=== PATIENT | male | born 1930 | race Caucasian/White ===

== ENCOUNTER 2017-05-12 15:07 | Outpatient (CLI) | payer MEDICARE, OTHER ==
[2017-05-12 18:21] LABS: CALCIUM 9.1 mg/dL (8.5-10.3); CREATININE 1.1 mg/dL (0.6-1.2); POTASSIUM 4.3 mmol/L (3.5-5.0)
[2017-05-12 18:23] LABS: HEMOGLOBIN A1C 0.8 g/dL
== END 2017-05-12 15:08 | disposition home or self-care (01) ==
LOC: LAB.F 15:07
PROVIDERS: ATTEND Internal Medicine
DX: E11.9 Type 2 diabetes mellitus without complications (principal)
CPT/HCPCS: 36415; 80048; 83036

== ENCOUNTER 2017-06-16 11:14 | Emergency (ER) | payer MEDICARE, OTHER ==
[2017-06-16 13:10] LABS: BILIRUBIN,URINE NEGATIVE (NEGATIVE); PH,URINE 5.5 PH (5.0-7.5)
[2017-06-16 13:11] LABS: BASOPHILS % (AUTO) 0.6 %; EOSINOPHILS # (AUTO) 0.2 10^3/uL (0.0-0.7); EOSINOPHILS % (AUTO) 2.4 %; HCT - HEMATOCRIT 47.7 % (42.0-52.0); HGB - HEMOGLOBIN 15.9 g/dL (14.0-18.0); LYMPHOCYTES # (AUTO) 1.7 10^3/uL (1.5-3.5); LYMPHOCYTES % (AUTO) 21.9 %; MEAN CORPUSCULAR HEMOGLOBIN 28.8 pg (27.0-31.0); MEAN CORPUSCULAR HGB CONC 33.4 g/dL (32.0-36.0); MEAN CORPUSCULAR VOLUME 86.1 fL (80.0-94.0); MEAN PLATELET VOLUME 9.4 fL (7.4-11.4); MONOCYTES # (AUTO) 0.5 10^3/uL (0.0-1.0); MONOCYTES % (AUTO) 6.8 %; NEUTROPHILS # (AUTO) 5.3 10^3/uL (1.5-6.6); NEUTROPHILS % (AUTO) 68.3 %; NUCLEATED RED BLOOD CELLS AUTO 0.1 /100WBC; RED BLOOD COUNT 5.54 10^6/uL (4.70-6.10); RED CELL DISTRIBUTION WIDTH 15.2 % (12.0-15.0); UNCORRECTED WHITE BLOOD COUNT 7.7 x10^3/uL; WHITE BLOOD COUNT 7.7 x10^3/uL (4.8-10.8)
[2017-06-16 13:11] LABS: UA CHARGE (STRIP ONLY) YES; UR CULTURE IF IND NOT INDICATED
[2017-06-16 13:22] LABS: ALBUMIN/GLOBULIN RATIO 1.4 (1.0-2.2); BILIRUBIN,TOTAL 0.7 mg/dL (0.2-1.0); CALCIUM 9.4 mg/dL (8.5-10.3); CREATININE 1.1 mg/dL (0.6-1.2); POTASSIUM 4.1 mmol/L (3.5-5.0); TOTAL PROTEIN 7.7 g/dL (6.7-8.2)
[2017-06-16 13:50] VITALS: BP 145/59
--- NOTE | 2017-06-16 15:04 | ED Physician Documentation ---
History of Present Illness - Stated complaint Stated Complaint: TIA SYMPTOMS - Chief complaint Chief Complaint: Neuro - History obtained from History obtained from: Patient, Caregiver - Additonal information Additional information: The patient is an 87-year-old male who is accompanied by his caregiver who helps provide history. The patient states, "I see everything and slants." He is an insulin-dependent diabetic who has been found by his caregivers to have intermittent episodes of confusion, with low blood sugars, as low as 35 yesterday. Because of his episodes of confusion his caregivers are concerned about the possibility of TIAs or possibly stroke. There has been no recent change in his weight, his diet, or his level of exercise. His insulin dose has been recently adjusted within the last month. He had been taking Lantus 30 units twice daily, and it was changed to 60 units in the morning. He also takes NovoLog 70/30 35 units 3 times per day. In addition to insulin-dependent diabetes the patient has peripheral neuropathy , with bilateral foot drop for which he wears ankle braces. He lives by himself , but has caregivers who live nearby and check in with him daily. Review of Systems Constitutional: denies: Fever Eyes: denies: Decreased vision Ears: denies: Tinnitus/ringing Nose: denies: Congestion Throat: denies: Sore throat Cardiac: denies: Chest pain / pressure Respiratory: denies: Dyspnea, Cough GI: denies: Abdominal Pain, Nausea, Vomiting : denies: Dysuria Skin: denies: Rash Musculoskeletal: denies: Back pain, Extremity swelling Neurologic: reports: Confused (Occasional episodes of confusion, associated with low blood sugar.). denies: Focal weakness, Headache PD PAST MEDICAL HISTORY - Past Medical History Cardiovascular: Hypertension Neuro: Peripheral neuropathy Endocrine/Autoimmune: Type 2 diabetes GI: Ulcers : Benign prostate hypertrophy Musculoskeletal: Osteoarthritis - Past Surgical History General: Cholecystectomy, Appendectomy Ortho: Carpal Tunnel surgery - Present Medications Home Medications: Ambulatory Orders Medication Instructions Recorded Confirmed Insulin NPH Hum/Reg Insulin Hm 58 unit SUBQ TID 05/26/14 06/16/17 [Novolin 70-30 100 Unit/ml Vial] metFORMIN [Glucophage] 500 mg PO BIDWM 03/04/16 06/16/17 - Allergies Allergies/Adverse Reactions: Allergies Allergy/AdvReac Type Severity Reaction Status Date / Time No Known Drug Allergies Allergy Verified 07/15/16 16:32 - Living Situation Living Arrangement: reports: At home - Social History Does the pt smoke?: No Smoking Status: Former smoker Does the pt have substance abuse?: No PD ED PE NORMAL - Vitals Vital signs reviewed: Yes (systolic hypertension initially.) - General General: Alert and oriented X 3, Well developed/nourished, Other (Pleasant elderly male.) - HEENT HEENT: Atraumatic, PERRL, EOMI, Pharynx benign, Other (No visual field deficit detected.) - Neck Neck: Supple, no meningeal sign, No adenopathy, No JVD - Cardiac Cardiac: RRR, No murmur - Respiratory Respiratory: No respiratory distress, Clear bilaterally - Abdomen Abdomen: Soft, Non tender - Back Back: No CVA TTP - Derm Derm: No rash - Extremities Extremities: No edema, No calf tenderness / cord - Neuro Neuro: Alert and oriented X 3, No motor deficit, No sensory deficit Results - Vitals Vitals: Oxygen O2 Source Room air - Labs Labs: Laboratory Tests 06/16/17 06/16/17 06/16/17 12:43 12:55 13:01 WBC 7.7 RBC 5.54 Hgb 15.9 Hct 47.7 MCV 86.1 MCH 28.8 MCHC 33.4 RDW 15.2 H Plt Count 150 MPV 9.4 Neut # 5.3 Lymph # 1.7 [place] # 0.5 Eos # 0.2 Baso # 0.0 Absolute Nucleated RBC 0.01 Nucleated RBCs 0.1 Sodium Potassium Chloride Carbon Dioxide Anion Gap BUN Creatinine Estimated GFR (MDRD) Glucose POC Whole Bld Glucose 101 H Calcium Total Bilirubin AST ALT Alkaline Phosphatase Total Protein Albumin Globulin Albumin/Globulin Ratio Lipase Urine Color YELLOW Urine Clarity CLEAR Urine pH 5.5 Ur Specific [place] 1.025 Urine Protein NEGATIVE Urine Glucose (UA) NEGATIVE Urine Ketones NEGATIVE Urine Occult Blood NEGATIVE Urine Nitrite NEGATIVE Urine Bilirubin NEGATIVE Urine Urobilinogen 0.2 (NORMAL) Ur Leukocyte Esterase NEGATIVE Ur Microscopic Review NOT INDICATED Urine Culture Comments NOT INDICATED 06/16/17 06/16/17 13:01 14:11 WBC RBC Hgb Hct MCV MCH MCHC RDW Plt Count MPV Neut # Lymph # [place] # Eos # Baso # Absolute Nucleated RBC Nucleated RBCs Sodium 141 Potassium 4.1 Chloride 104 Carbon Dioxide 28 Anion Gap 9.0 BUN 24 H Creatinine 1.1 Estimated GFR (MDRD) 63 L Glucose 78 POC Whole Bld Glucose 64 L Calcium 9.4 Total Bilirubin 0.7 AST 29 ALT 22 Alkaline Phosphatase 80 Total Protein 7.7 Albumin 4.5 Globulin 3.2 Albumin/Globulin Ratio 1.4 Lipase 40 Urine Color Urine Clarity Urine pH Ur Specific [place] Urine Protein Urine Glucose (UA) Urine Ketones Urine Occult Blood Urine Nitrite Urine Bilirubin Urine Urobilinogen Ur Leukocyte Esterase Ur Microscopic Review Urine Culture Comments PD MEDICAL DECISION MAKING - ED course Complexity details: reviewed results, re-evaluated patient, considered differential, d/w patient, d/w family, d/w PMD ED course: The patient's presentation is most consistent with episodes of hypoglycemia, with associated confusion. His clinical presentation does not suggest TIA or stroke. I discussed with him and his caregiver the likelihood that his episodes of confusion are related to low blood sugar rather than intracranial ischemia, and they agree that imaging study would not likely be of clinical benefit. While in the emergency department the patient's blood sugar, although initially 101, came down to 64. He was given a sandwich and juice at that time , and responded well. I discussed his insulin dosing with Dr. White, his primary physician, and he advised decreasing the 70/30 insulin to twice daily dosing rather than 3 times daily. I discussed this with the patient and his caregiver who will institute the new dosing. I discussed with them outpatient follow-up, as well as potentially worrisome signs or symptoms that should the emergency department. Departure - Departure Disposition: 01 Home, Self Care Clinical Impression: Hypoglycemia due to insulin Condition: Stable Instructions: ED Diabetes Hypoglycemia Insulin React Follow-Up: Nikolas White MD [Primary Care Provider] - Comments: Decrease your 7030 insulin from 3 times a day down to twice per day. Continue the Lantus as previously prescribed. Schedule follow-up appointment with your primary physician. Return to the emergency department if you develop recurrent episodes of confusion or neurologic deficit, or otherwise worsening symptoms. Discharge Date/Time: 06/16/17 15:09
== END 2017-06-16 15:09 | disposition home or self-care (01) ==
LOC: ED 11:14
DX: E11.649 Type 2 diabetes mellitus with hypoglycemia without coma (principal); T38.3X5A Adverse effect of insulin and oral hypoglycemic [antidiabetic] drugs, initial encounter; E11.42 Type 2 diabetes mellitus with diabetic polyneuropathy; M21.372 Foot drop, left foot; M21.371 Foot drop, right foot; I10 Essential (primary) hypertension; Z79.4 Long term (current) use of insulin; Z87.891 Personal history of nicotine dependence
CPT/HCPCS: 36415; 80053; 81001; 81003; 83690; 85025; 87086; 99283; 99284

== ENCOUNTER 2017-07-02 16:36 | Outpatient (CLI) | payer MEDICARE, OTHER | END 2017-07-02 16:37 | disposition EMS.NT | LOC: EMS 16:36 | PROVIDERS: ATTEND Surgery | DX: Z03.89 Encounter for observation for other suspected diseases and conditions ruled out (principal) ==

== ENCOUNTER 2017-08-12 12:39 | Outpatient (CLI) | payer MEDICARE, OTHER ==
[2017-08-12 18:48] LABS: HEMOGLOBIN A1C 0.76 g/dL
[2017-08-12 18:56] LABS: BUN - BLOOD UREA NITROGEN 25 mg/dL (6-20); CARBON DIOXIDE - CO2 24 mmol/L (21-32); CHLORIDE 108 mmol/L (101-111); CHOL/HDL RATIO 4.5 (<5.0); CHOLESTEROL 176 mg/dL; CREATININE 1.1 mg/dL (0.6-1.2); GFR - MDRD 63 (>89); GLUCOSE 90 mg/dL (70-100); HDL CHOLESTEROL 39 mg/dL; LDL/HDL RATIO 2.7 (<3.6); POTASSIUM 4.6 mmol/L (3.5-5.0); SODIUM 139 mmol/L (135-145); TRIGLYCERIDES 160 mg/dL; VLDL CHOLESTEROL 32 mg/dL
== END 2017-08-12 12:40 | disposition home or self-care (01) ==
LOC: LAB.F 12:39
PROVIDERS: ATTEND Internal Medicine
DX: E11.9 Type 2 diabetes mellitus without complications (principal)
CPT/HCPCS: 36415; 80048; 80061; 83036

== ENCOUNTER 2017-11-13 14:05 | Emergency (ER) | payer MEDICARE, OTHER ==
--- NOTE | 2017-11-13 16:04 | ED Physician Documentation ---
PD HPI LOWER EXT INJURY - Stated complaint Stated Complaint: R LEG PX - Chief complaint Chief Complaint: Ext Problem - History obtained from History obtained from: Patient - History of Present Illness PD HPI LOW EXT INJURY LOCATION: Right, Knee Type of injury: No: Fall, Twist Where injury occurred: Home Timing - onset: How many days ago (he has had about a week of right knee pain with walking and stepping (such as stairs). Some dusky color of leg, but this is common. Mild edema of both legs.) Timing - details: Abrupt onset (noted pain with stepping and walking without apparent injury.), Still present, Intermittant Improved by: Rest Worsened by: Other (walking and stepping on steps.). No: Moving, Palpating Associated symptoms: No: Weakness, Numbness, Swelling (not in knee, but some of lower leg/ankle.) Contributing factors: Prior ortho surgery (right hip replacement last spring.) Similar symptoms before: Diagnosis (has had some pain with walking in the past due to vascular insufficiency. Also concerned about DVTs.) Review of Systems Constitutional: denies: Fever, Chills Throat: denies: Sore throat Cardiac: denies: Chest pain / pressure, Palpitations Respiratory: denies: Dyspnea, Cough Skin: reports: Abrasion (s) (has some abrasions of legs, right knee from his cat. No signs of infection.). denies: Rash Musculoskeletal: denies: Neck pain, Back pain PD PAST MEDICAL HISTORY - Past Medical History Cardiovascular: Hypertension, Peripheral Vascular Disease (with ?fem/pop bypass of both legs in the past. ) Neuro: Peripheral neuropathy Endocrine/Autoimmune: Type 2 diabetes GI: Ulcers : Benign prostate hypertrophy Musculoskeletal: Osteoarthritis - Past Surgical History General: Cholecystectomy, Appendectomy Ortho: Carpal Tunnel surgery - Present Medications Home Medications: Ambulatory Orders Medication Instructions Recorded Confirmed Insulin NPH Hum/Reg Insulin Hm 58 unit SUBQ TID 05/26/14 11/13/17 [Novolin 70-30 100 Unit/ml Vial] metFORMIN [Glucophage] 500 mg PO BIDWM 03/04/16 11/13/17 Insulin Glargine [Lantus Solostar] 50 units SQ DAILY 11/13/17 11/13/17 Naproxen 375 mg PO BID #15 tablet 11/13/17 Tramadol HCl 50 mg PO Q6H PRN #20 tablet 11/13/17 - Allergies Allergies/Adverse Reactions: Allergies Allergy/AdvReac Type Severity Reaction Status Date / Time No Known Drug Allergies Allergy Verified 11/13/17 14:11 - Social History Does the pt smoke?: No Smoking Status: Never smoker Does the pt drink ETOH?: No Does the pt have substance abuse?: No - Immunizations Immunizations are current?: Yes PD ED PE NORMAL - Vitals Vital signs reviewed: Yes - General General: Alert and oriented X 3, No acute distress, Well developed/nourished - Neck Neck: Supple, no meningeal sign, No adenopathy - Cardiac Cardiac: RRR, No murmur - Respiratory Respiratory: Clear bilaterally - Derm Derm: Warm and dry, Other (abrasions of skin around both knees. No signs of infection. ). No: Normal color (some dusky color of skin in both lower legs from knees down. DP pulses weak but palpable both sides. Will get U/S. ) - Extremities Extremities: No calf tenderness / cord, Other (some edema in both legs anteriorly and around ankles. No calf tenderness per se. ) - Neuro Neuro: Alert and oriented X 3, No motor deficit, No sensory deficit, Normal speech Results - Vitals Vitals: Vital Signs - 24 hr 11/13/17 11/13/17 11/13/17 14:07 18:27 22:58 Temperature 36.7 C 36.2 C L 36.4 C L Heart Rate 71 76 84 Respiratory 18 20 20 Rate Blood Pressure 152/80 H 109/77 121/76 O2 Saturation 96 98 100 Oxygen O2 Source Room air - Labs Labs: Laboratory Tests 11/13/17 11/13/17 11/13/17 17:01 17:22 17:22 WBC 6.1 RBC 5.36 Hgb 15.3 Hct 47.7 MCV 89.0 MCH 28.6 MCHC 32.2 RDW 15.9 H Plt Count 166 MPV 9.5 Neut # 3.8 Lymph # 1.4 L [place] # 0.5 Eos # 0.2 Baso # 0.1 Absolute Nucleated RBC 0.00 Nucleated RBC % 0.1 ESR Sodium 138 Potassium 4.7 Chloride 103 Carbon Dioxide 23 Anion Gap 12.0 BUN 25 H Creatinine 1.3 H Estimated GFR (MDRD) 52 L Glucose 195 H POC Whole Bld Glucose 204 H Calcium 9.6 Magnesium 2.1 Total Bilirubin 0.8 AST 34 ALT 38 Alkaline Phosphatase 81 B-Natriuretic Peptide Total Protein 7.3 Albumin 4.1 Globulin 3.2 Albumin/Globulin Ratio 1.3 Lipase 44 11/13/17 11/13/17 17:22 17:22 WBC RBC Hgb Hct MCV MCH MCHC RDW Plt Count MPV Neut # Lymph # [place] # Eos # Baso # Absolute Nucleated RBC Nucleated RBC % ESR 1 Sodium Potassium Chloride Carbon Dioxide Anion Gap BUN Creatinine Estimated GFR (MDRD) Glucose POC Whole Bld Glucose Calcium Magnesium Total Bilirubin AST ALT Alkaline Phosphatase B-Natriuretic Peptide 1089 H Total Protein Albumin Globulin Albumin/Globulin Ratio Lipase - Rads (name of study) knee xray Radiology: Prelim report reviewed, EMP read contemporaneously (arthritic changes , no acute fractures. ) duplex venous Radiology: Prelim report reviewed (no DVT) duplex arterial Radiology: Prelim report reviewed (occlusion in femoral artery, with reconstituted flow distally, going through bypass graft. ) PD MEDICAL DECISION MAKING - ED course Complexity details: reviewed results, re-evaluated patient, considered differential, d/w patient Departure - Departure Disposition: 01 Home, Self Care Clinical Impression: Arthritis of knee, right Knee pain, right Qualifiers: Chronicity: acute Qualified Code(s): M25.561 - Pain in right knee Condition: Stable Record reviewed to determine appropriate education?: Yes Instructions: ED Meniscal Injury Knee Poss, ED Knee Pain [facility]O Follow-Up: [facility] [Provider Group] Prescriptions: Naproxen 375 mg PO BID #15 tablet Tramadol HCl 50 mg PO Q6H PRN #20 tablet PRN Reason: Pain Comments: There is not any signs of DVT (venous clots) and the arterial flow is adequate through the prior graft. There is arthritis of the knee and I think the arthritis or the cartilage in the knee is what is paining you. Use some anti- inflammatory short term, such as Naproxen twice daily for a week with food. Tylenol 3-4 times daily for the pain and add Tramadol as needed for worse pain. Follow up with PMD or Ortho if not improved over the next week.
[2017-11-13] MEDS ORDERED: ACETAMINOPHEN 325 MG TABLET PO STA (16:36)
--- NOTE | 2017-11-13 17:09 | XRAY Report ---
EXAM: RIGHT KNEE RADIOGRAPHY EXAM DATE: 11/13/2017 04:55 PM. CLINICAL HISTORY: Right knee pain with walking. COMPARISON: 03/03/2016. TECHNIQUE: 3 views. FINDINGS: Bones: Normal. No fractures or bone lesions. Joints: Minimal spurring. No effusion. No subluxations. Soft Tissues: Medial and lateral compartment chondrocalcinosis. Atherosclerotic arterial calcificatio n. Scattered surgical clips. IMPRESSION: No acute findings. Stable mild osteoarthritis and chondrocalcinosis. [facility] Referring Provider Line: [phone] SITE ID: [id number]
[2017-11-13 17:31] LABS: BASOPHILS # (AUTO) 0.1 10^3/uL (0.0-0.1); BASOPHILS % (AUTO) 0.9 %; EOSINOPHILS # (AUTO) 0.2 10^3/uL (0.0-0.7); EOSINOPHILS % (AUTO) 3.6 %; HGB - HEMOGLOBIN 15.3 g/dL (14.0-18.0); LYMPHOCYTES # (AUTO) 1.4 10^3/uL (1.5-3.5); LYMPHOCYTES % (AUTO) 23.9 %; MEAN CORPUSCULAR HEMOGLOBIN 28.6 pg (27.0-31.0); MEAN CORPUSCULAR HGB CONC 32.2 g/dL (32.0-36.0); MEAN PLATELET VOLUME 9.5 fL (7.4-11.4); MONOCYTES # (AUTO) 0.5 10^3/uL (0.0-1.0); MONOCYTES % (AUTO) 8.2 %; NEUTROPHILS # (AUTO) 3.8 10^3/uL (1.5-6.6); NEUTROPHILS % (AUTO) 63.4 %; PLT - PLATELET COUNT 166 10^3/uL (130-450); RED BLOOD COUNT 5.36 10^6/uL (4.70-6.10); RED CELL DISTRIBUTION WIDTH 15.9 % (12.0-15.0); WHITE BLOOD COUNT 6.1 x10^3/uL (4.8-10.8)
[2017-11-13 17:42] LABS: ALBUMIN 4.1 g/dL (3.2-5.5); ALBUMIN/GLOBULIN RATIO 1.3 (1.0-2.2); BILIRUBIN,TOTAL 0.8 mg/dL (0.2-1.0); CALCIUM 9.6 mg/dL (8.5-10.3); CREATININE 1.3 mg/dL (0.6-1.2); MAGNESIUM 2.1 mg/dL (1.7-2.8); TOTAL PROTEIN 7.3 g/dL (6.7-8.2)
--- NOTE | 2017-11-13 21:47 | Ultrasound Report ---
EXAM: RIGHT LOWER EXTREMITY VENOUS ULTRASOUND EXAM DATE: 11/13/2017 09:23 PM. CLINICAL HISTORY: Pain in right lower leg with walking; some edema. COMPARISON: None. TECHNIQUE: Real-time sonographic vascular imaging was performed by the cardiac cath rn through the lower extremity utilizing both color-flow and Doppler spectral analysis. Multiple service representative static sheri ges were saved for review. FINDINGS: Common Femoral Vein (CFV): Normal. CFV-GSV Junction: Normal. Profunda Femoral Vein (PFV): Normal. Femoral Vein (FV) Prox: Normal. Femoral Vein (FV) Mid: Normal. Femoral Vein (FV) Dist: Normal. Popliteal Vein: Normal. Posterior Tibial Veins: Normal. Peroneal Veins: Normal. Contralateral Side CFV: Normal. Other: Right leg edema noted. Study limited due to body habitus. IMPRESSION: No evidence for deep venous thrombosis. Right leg edema noted. [facility] Referring Provider Line: [phone] SITE ID: [id number]
--- NOTE | 2017-11-13 21:47 | Ultrasound Preliminary Report ---
Exam: US DUPLEX EXT VEINS RIGHT IMPRESSION: No evidence for deep venous thrombosis. Right leg edema noted. [facility] SITE ID: [id number]
[2017-11-13 22:59] VITALS: BP 121/76
[2017-11-13] MEDS ORDERED: traMADol 50 MG TABLET PO STA (23:18)
--- NOTE | 2017-11-13 23:32 | Ultrasound Preliminary Report ---
Exam: US DUPLEX LWR EXT ARTERIAL RT IMPRESSION: 1. Occluded distal superficial femoral artery with patent femoral popliteal bypass graft. 2. Biphasic flow above the graft. Monophasic flow distal to the graft. 3. No focal significant stenosis identified. [facility] SITE ID: [id number]
--- NOTE | 2017-11-14 00:33 | Ultrasound Report ---
EXAM: RIGHT LOWER EXTREMITY ARTERIAL DOPPLER ULTRASOUND EXAM DATE: 11/13/2017 10:58 PM. CLINICAL HISTORY: Pain, right knee and lower leg, walking; prior bypass. COMPARISON: 02/09/2010. TECHNIQUE: Real-time sonographic vascular imaging was performed by the wind projects supervisor, utilizing color-f low, Doppler flow, and spectral analysis. Multiple artist representative static images were saved for review . FINDINGS: There is biphasic flow from the common femoral artery through the mid superficial femoral a rtery. Distal superficial femoral artery is occluded. There appears to be a femoral popliteal bypass graft which is patent. No focal significant stenosis is seen. Distal to the bypass there is monophasi c flow in the popliteal artery and runoff vessels. Duplex Results Right Lower Extremity: TURNING MACHINE OPERATOR: 77 cm/sec; biphasic. SFA Prox: 31 cm/sec; biphasic. SFA Mid: 21 cm/sec; biphasic. SFA Dist: Occluded. PFA 43 cm/sec; biphasic. POP: Monophasic. ISMAEL: Monophasic. CLINICAL RESEARCH ASSISTANT: Monophasic. PER: Monophasic. DPA: Monophasic. Prebypass Biphasic Waveform, PSV 82 cm/sec. Biphasic Waveform, PSV 116 cm/sec. Prox Biphasic Waveform, PSV 38 cm/sec. Mid Biphasic Waveform, PSV 41 cm/sec. Dist Biphasic Waveform, PSV 66 cm/sec. IMPRESSION: 1. Occluded distal superficial femoral artery with patent femoral popliteal bypass graft. 2. Biphasic flow above the graft. Monophasic flow distal to the graft. 3. No focal significant stenosis identified. [facility] Referring Provider Line: [phone] SITE ID: [id number]
== END 2017-11-13 23:25 | disposition home or self-care (01) ==
LOC: ED 14:05
DX: M13.861 Other specified arthritis, right knee (principal); I10 Essential (primary) hypertension; E11.51 Type 2 diabetes mellitus with diabetic peripheral angiopathy without gangrene; Z79.4 Long term (current) use of insulin; Z96.641 Presence of right artificial hip joint; Z95.828 Presence of other vascular implants and grafts
CPT/HCPCS: 36415; 73562; 80053; 83690; 83735; 83880; 85025; 85651; 93926; 93971; 99283; 99284; A9270

== ENCOUNTER 2017-11-20 13:39 | Inpatient (IN) | payer MEDICARE, OTHER ==
[2017-11-20 14:12] LABS: BILIRUBIN,URINE NEGATIVE (NEGATIVE); GLUCOSE, URINE (UA) NEGATIVE (NEGATIVE); KETONES,URINE (UA) NEGATIVE (NEGATIVE); LEUKOCYTE ESTERASE, URINE NEGATIVE (NEGATIVE); NITRITE,URINE NEGATIVE (NEGATIVE); OCCULT BLOOD,URINE TRACE-INTA (NEGATIVE); PH,URINE 5.5 PH (5.0-7.5); PROTEIN,URINE TRACE mg/dL (NEGATIVE); UROBILINOGEN,URINE 0.2 (NORMAL) E.U./dL (NORMAL)
[2017-11-20 14:16] LABS: CLARITY,URINE CLEAR (CLEAR)
--- NOTE | 2017-11-20 15:41 | ED Physician Documentation ---
PD HPI ALTERED MENTAL STATUS - Stated complaint Stated Complaint: CONFUSION - Chief complaint Chief Complaint: Neuro - History obtained from History obtained from: Patient, Friend (who lives on the property) - History of Present Illness Timing - onset: Other (87-year-old gentleman with history of diabetes who lives on his own with visiting caregivers on the weekdays and he has a person who lives on his property who checks on him and administers the insulin on the weekends. For the last 2 days he has been significantly more confused than normal, he said he wanted to go home even though this statement was made while in his living room. He forgot his cats name. He says he has a dog which he does not. He has no specific complaints, denies headache, chest pain, shortness of breath, abdominal pain, changes in bowel movements, fevers.) Review of Systems Unable to obtain: Confused PD PAST MEDICAL HISTORY - Past Medical History Past Medical History: Yes Cardiovascular: Hypertension, Peripheral Vascular Disease Neuro: Peripheral neuropathy Endocrine/Autoimmune: Type 2 diabetes GI: Ulcers : Benign prostate hypertrophy Musculoskeletal: Osteoarthritis - Past Surgical History General: Cholecystectomy, Appendectomy Ortho: Carpal Tunnel surgery - Present Medications Home Medications: Ambulatory Orders Medication Instructions Recorded Confirmed Insulin NPH Hum/Reg Insulin Hm 58 unit SUBQ TID 05/26/14 11/20/17 [Novolin 70-30 100 Unit/ml Vial] metFORMIN [Glucophage] 500 mg PO BIDWM 03/04/16 11/20/17 Insulin Glargine [Lantus Solostar] 50 units SQ DAILY 11/13/17 11/20/17 Naproxen 375 mg PO BID #15 tablet 11/13/17 11/20/17 Tramadol HCl 50 mg PO Q6H PRN #20 tablet 11/13/17 11/20/17 - Allergies Allergies/Adverse Reactions: Allergies Allergy/AdvReac Type Severity Reaction Status Date / Time No Known Drug Allergies Allergy Verified 11/20/17 13:50 - Social History Does the pt smoke?: No Smoking Status: Never smoker Does the pt drink ETOH?: No Does the pt have substance abuse?: No - Family History Family history: reports: Non contributory - Immunizations Immunizations are current?: Yes PD ED PE NORMAL - Vitals Vital signs reviewed: Yes - General General: Other (He is alert and cooperative, oriented to place only not why he is here or the date. He says it is August 18, 2001 and he does not know the president despite being "a huge trump supporter" by his friend.) - HEENT HEENT: PERRL, EOMI - Neck Neck: Supple, no meningeal sign, No bony TTP - Cardiac Cardiac: RRR, No murmur - Respiratory Respiratory: No respiratory distress, Clear bilaterally - Abdomen Abdomen: Soft, Non tender - Back Back: No CVA TTP, No spinal TTP - Derm Derm: Normal color, Warm and dry - Extremities Extremities: No edema, No calf tenderness / cord - Neuro Neuro: informatics application analyst 2-12 intact Eye Opening: Spontaneous Motor: Obeys Commands Verbal: Confused GCS Score: 14 - Psych Psych: Normal mood, Normal affect Results - Vitals Vitals: Vital Signs - 24 hr 11/20/17 13:44 Temperature 36.1 C L Heart Rate 89 Respiratory 18 Rate Blood Pressure 162/75 H O2 Saturation 98 Oxygen O2 Source Room air - EKG (time done) 1614 Rate: Rate (enter#) (72) Rhythm: NSR [place]: Normal QRS: Low voltage Ischemia: Non specific changes Computer interpretation: Agree with computer - Labs Labs: Laboratory Tests 11/20/17 11/20/17 11/20/17 13:49 14:00 15:47 WBC 6.2 RBC 5.41 Hgb 15.0 Hct 47.4 MCV 87.5 MCH 27.8 MCHC 31.8 L RDW 15.6 H Plt Count 150 MPV 10.1 Neut # 3.9 Lymph # 1.4 L [place] # 0.6 Eos # 0.2 Baso # 0.1 Absolute Nucleated RBC 0.00 Nucleated RBC % 0.1 Sodium Potassium Chloride Carbon Dioxide Anion Gap BUN Creatinine Estimated GFR (MDRD) Glucose POC Whole Bld Glucose 152 H Calcium Total Bilirubin AST ALT Alkaline Phosphatase Troponin I Total Protein Albumin Globulin Albumin/Globulin Ratio Lipase Urine Color YELLOW Urine Clarity CLEAR Urine pH 5.5 Ur Specific [place] >=1.030 H Urine Protein TRACE Urine Glucose (UA) NEGATIVE Urine Ketones NEGATIVE Urine Occult Blood TRACE-INTA Urine Nitrite NEGATIVE Urine Bilirubin NEGATIVE Urine Urobilinogen 0.2 (NORMAL) Ur Leukocyte Esterase NEGATIVE Ur Microscopic Review NOT INDICATED Urine Culture Comments NOT INDICATED 11/20/17 11/20/17 15:47 15:47 WBC RBC Hgb Hct MCV MCH MCHC RDW Plt Count MPV Neut # Lymph # [place] # Eos # Baso # Absolute Nucleated RBC Nucleated RBC % Sodium 139 Potassium 4.5 Chloride 107 Carbon Dioxide 23 Anion Gap 9.0 BUN 23 H Creatinine 1.3 H Estimated GFR (MDRD) 52 L Glucose 119 H POC Whole Bld Glucose Calcium 8.9 Total Bilirubin 0.8 AST 33 ALT 32 Alkaline Phosphatase 73 Troponin I 0.18 Total Protein 6.8 Albumin 4.0 Globulin 2.8 Albumin/Globulin Ratio 1.4 Lipase 33 Urine Color Urine Clarity Urine pH Ur Specific [place] Urine Protein Urine Glucose (UA) Urine Ketones Urine Occult Blood Urine Nitrite Urine Bilirubin Urine Urobilinogen Ur Leukocyte Esterase Ur Microscopic Review Urine Culture Comments - Rads (name of study) CT Head Radiology: EMP read contemporaneously (Atrophy) 2v chest Radiology: EMP read contemporaneously (New small right pleural effusion without other acute disease.) PD MEDICAL DECISION MAKING - ED course ED course: 87-year-old gentleman who presents without chest pain or trouble breathing has been confused for a couple of days. His exam is nonfocal and his EKG is nonspecific. He does have mild troponin anemia, remainder of his workup here is negative. Call to Dr. Polanco for observation at 4:19 PM. Departure - Departure Disposition: ED Place in Observation Clinical Impression: Troponin I above reference range Altered mental status Qualifiers: Altered mental status type: disorientation Qualified Code(s): R41.0 - Disorientation, unspecified Condition: Stable
[2017-11-20 15:56] LABS: BASOPHILS # (AUTO) 0.1 10^3/uL (0.0-0.1); BASOPHILS % (AUTO) 1.2 %; EOSINOPHILS # (AUTO) 0.2 10^3/uL (0.0-0.7); EOSINOPHILS % (AUTO) 3.5 %; LYMPHOCYTES # (AUTO) 1.4 10^3/uL (1.5-3.5); LYMPHOCYTES % (AUTO) 22.3 %; MEAN CORPUSCULAR HEMOGLOBIN 27.8 pg (27.0-31.0); MEAN CORPUSCULAR HGB CONC 31.8 g/dL (32.0-36.0); MEAN CORPUSCULAR VOLUME 87.5 fL (80.0-94.0); MEAN PLATELET VOLUME 10.1 fL (7.4-11.4); MONOCYTES # (AUTO) 0.6 10^3/uL (0.0-1.0); NEUTROPHILS # (AUTO) 3.9 10^3/uL (1.5-6.6); PLT - PLATELET COUNT 150 10^3/uL (130-450); RED BLOOD COUNT 5.41 10^6/uL (4.70-6.10); RED CELL DISTRIBUTION WIDTH 15.6 % (12.0-15.0); WHITE BLOOD COUNT 6.2 x10^3/uL (4.8-10.8)
--- NOTE | 2017-11-20 16:05 | CT Report ---
EXAM: CT HEAD EXAM DATE: 11/20/2017 03:57 PM. CLINICAL HISTORY: Altered mental status. COMPARISON: None. TECHNIQUE: Multiaxial CT images were obtained from the foramen magnum to the vertex. Reformats: Coron al. IV contrast: None. In accordance with CT protocol optimization, one or more of the following dose reduction techniques w ere utilized for this exam: automated exposure control, adjustment of mA and/or KV based on patient s ize, or use of iterative reconstructive technique. FINDINGS: Parenchyma: No intraparenchymal hemorrhage. No evidence of mass, midline shift, or CT findings of acu te infarction. Manzo-white differentiation is distinct. Diffuse chronic microangiopathic white matter changes. Extraaxial Spaces: Normal for age. No subdural or epidural collections. Ventricles: The ventricles and cortical sulci are enlarged, consistent with age-related tissue loss. Sinuses and orbits: Imaged paranasal sinuses, orbits, and mastoids show no significant abnormality. Bones: Unremarkable. Other: Calcifications of intracranial carotid and vertebral arteries. IMPRESSION: Generalized age-related cortical atrophic changes without evidence of acute intracranial abnormality. [facility] Referring Provider Line: [phone] SITE ID: [id number]
[2017-11-20 16:06] LABS: ALBUMIN/GLOBULIN RATIO 1.4 (1.0-2.2); BILIRUBIN,TOTAL 0.8 mg/dL (0.2-1.0); CALCIUM 8.9 mg/dL (8.5-10.3); CREATININE 1.3 mg/dL (0.6-1.2); TOTAL PROTEIN 6.8 g/dL (6.7-8.2)
[2017-11-20] MEDS ORDERED: ASPIRIN CHEW 81 MG TABLET PO STA (16:18)
[2017-11-20] MEDS ORDERED: METOPROLOL TARTRATE 50 MG TABLET PO STA (16:18)
[2017-11-20] MEDS ORDERED: traMADol 50 MG TABLET PO PRN (16:22)
[2017-11-20] MEDS ORDERED: SODIUM CHLORIDE FLUSH 0.9% 10 ML SYRINGE IVP PRN (16:24)
[2017-11-20] MEDS ORDERED: ACETAMINOPHEN 325 MG TABLET PO PRN (16:24)
[2017-11-20] MEDS ORDERED: oxyCODONE 5 MG TABLET PO PRN (16:24)
[2017-11-20] MEDS ORDERED: LABETALOL 20 MG/4 ML SYRINGE IVP PRN (16:24)
[2017-11-20] MEDS ORDERED: PROCHLORPERAZINE 10 MG/2 ML VIAL IVP PRN (16:24)
[2017-11-20] MEDS ORDERED: ONDANSETRON 4 MG/2 ML VIAL IVP PRN (16:24)
--- NOTE | 2017-11-20 16:24 | XRAY Report ---
EXAM: CHEST RADIOGRAPHY EXAM DATE: 11/20/2017 04:05 PM. CLINICAL HISTORY: Altered mental status. COMPARISON: 07/15/2016. TECHNIQUE: 2 views. FINDINGS: Lungs/Pleura: There is new mild blunting of the right costophrenic angle. Left lung appears unchanged . Mid and upper lung zones are clear. No pneumothorax. Mediastinum: There is mild cardiomegaly. Trachea is midline. Other: None. IMPRESSION: 1. New small right pleural effusion. 2. Otherwise unchanged. [facility] Referring Provider Line: [phone] SITE ID: [id number]
[2017-11-20] MEDS ORDERED: IOPAMIDOL-300 100 ML VIAL ONE (16:46)
[2017-11-20 16:51] LABS: SALICYLATE < 6.0 mg/dL
[2017-11-20 16:53] LABS: ACETAMINOPHEN < 10 ug/mL (10-30)
[2017-11-20 17:09] LABS: THYROID STIMULATING HORMONE 4.33 uIU/mL (0.34-5.60)
[2017-11-20] MEDS: INSULIN ASPART 300 UNIT/3 ML PEN SUBQ SCH ×2 (17:52→21:00)
[2017-11-20] MEDS ORDERED: IOPAMIDOL-300 100 ML VIAL IVP ONE (18:21)
--- NOTE | 2017-11-20 19:24 | CT Preliminary Report ---
Exam: CT NECK ANGIO IMPRESSION: 1. 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 2. The cervical vertebral arteries appear patent but evaluation is limited and is considered incomple te in the low neck. 3. Potentially flow-limiting focal stenosis with prominent calcified plaque at the right subclavian a rtery origin. 4. Arterial evaluation in the neck is somewhat limited secondary to relatively dilute intra-arterial contrast. 5. Pleural effusions right larger than left. 6. 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 7. Ultrasound could be used to more accurately define a suspected 1.5 cm right thyroid nodule. [facility] SITE ID: [id number]
--- NOTE | 2017-11-20 19:31 | CT Report ---
EXAM: CT ANGIOGRAM NECK EXAM DATE: 11/20/2017 06:20 PM. CLINICAL HISTORY: Confusion and memory loss. COMPARISON: None. TECHNIQUE: Routine axial helical imaging was performed from the skull base through the aortic arch. I V Contrast: 80 mL Isovue 300. Reconstructions: Routine multiplanar 3D MIP reconstructions. Evaluation of arterial stenosis is based on a NASCET method of measurement. In accordance with CT protocol optimization, one or more of the following dose reduction techniques w ere utilized for this exam: automated exposure control, adjustment of mA and/or KV based on patient s ize, or use of iterative reconstructive technique. FINDINGS: Densely contrast opacified pulmonary arteries in the chest but arterial contrast opacification in the neck is quite dilute which significantly limits arterial evaluation. Small dependent pleural effusion on the left. Moderate dependent pleural effusion on the right. Chronic advanced multilevel degenerative cervical spinal spondylosis. Cervical levoscoliosis. There may be a 1.5 cm mildly expansile soft tissue density nodule of the right lobe of the thyroid gl and. Mild to moderate atherosclerotic calcification at the top of the aortic arch. No evidence for flow-li miting stenosis at the great vessel origins. Moderate to severe focal luminal stenosis with prominent atherosclerotic calcification at the right s ubclavian artery origin. Right cervical carotid artery atherosclerotic disease with calcified plaque, especially prominent in the region of the cervical bifurcation. Multifocal right cervical carotid artery luminal stenosis is present but unlikely to be hemodynamically significant. Multifocal atherosclerotic disease with calcified and noncalcified plaque of the left cervical caroti d artery, especially prominent at the cervical bifurcation. Multifocal luminal stenosis is present bu t does not appear to be flow-limiting. Both cervical vertebral arteries appear to be patent. Detailed evaluation is limited by dilute intral uminal contrast, beam-hardening streak artifact especially in the low neck and relatively small vesse l size. Vertebral artery detailed evaluation in the low neck may be considered incomplete. IMPRESSION: 1. 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 2. The cervical vertebral arteries appear patent but evaluation is limited and may be considered inco mplete in the low neck. 3. Potentially flow-limiting focal stenosis with prominent calcified plaque at the right subclavian a rtery origin. 4. Arterial evaluation in the neck is somewhat limited secondary to relatively dilute intra-arterial contrast. 5. Pleural effusions, right larger than left. 6. 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 7. Ultrasound could be used to more accurately define a suspected 1.5 cm right thyroid nodule. [facility] Referring Provider Line: [phone] SITE ID: [id number]
[2017-11-20 19:57] LABS: MUDS CUTOFF CONCENTRATIONS CUTOFF CONC BELOW:
--- NOTE | 2017-11-20 20:04 | CT Preliminary Report ---
Exam: CT HEAD ANGIO Impression: 1. No CT evidence for acute intracranial abnormality or space-occupying mass. 2. 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 3. Mild to moderate left greater than right atherosclerotic calcification is stenosis of the intradur al vertebral arteries. 4. Severe atherosclerotic calcifications of the cavernous and paraclinoid segments of both internal c arotid arteries. 5. No evidence for [place] aneurysm or significant stenosis of the central segments of the a nterior, middle or posterior cerebral arteries. [facility] SITE ID: [id number]
[2017-11-20 20:10] LABS: AMPHETAMINE SCREEN,URINE NEGATIVE (NEGATIVE); BENZODIAZEPINES SCREEN, URINE NEGATIVE (NEGATIVE); COCAINE SCREEN URINE NEGATIVE (NEGATIVE); METHADONE SCREEN, URINE NEGATIVE (NEGATIVE); METHAMPHETAMINES SCREEN, URINE NEGATIVE (NEGATIVE); OPIATE SCREEN, URINE NEGATIVE (NEGATIVE); OXYCODONE SCREEN, URINE NEGATIVE (NEGATIVE); PROPOXYPHENE SCREEN, URINE NEGATIVE (NEGATIVE); TRICYCLIC ANTIDEPRESSANT,URINE NEGATIVE (NEGATIVE)
--- NOTE | 2017-11-20 20:35 | CT Report ---
EXAM: CT ANGIOGRAM HEAD. CT SCAN OF THE HEAD WITHOUT AND WITH CONTRAST. EXAM DATE: 11/20/2017 06:20 PM CLINICAL HISTORY: Confusion, memory loss acute. COMPARISON: None. TECHNIQUE: 1. CT Scan Head: Using a multidetector scanner, axial images were acquired from the foramen magnum to the skull vertex prior to and following contrast administration. 2. CT Angiogram: Using a multidetector scanner, high-resolution axial images were acquired from the s kull base through vertex following rapid infusion of intravenous contrast. Reformats: Multiplanar MIP reformats were reconstructed. Nascet criteria used for stenosis measurement. IV Contrast: 80 mL Isovue 300. In accordance with CT protocol optimization, one or more of the following dose reduction techniques w ere utilized for this exam: automated exposure control, adjustment of mA and/or KV based on patient s ize, or use of iterative reconstructive technique. FINDINGS: No evidence for new or acute brain abnormality. No evidence for focal space-occupying brain mass. 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 Mild to moderate left greater than right vertebral artery stenosis where there is focal atherosclerot ic calcified plaque. Prominent calcifications of the cavernous and paraclinoid segments of the internal carotid arteries. No proximal flow limiting stenosis, occlusion or filling defect of the anterior, middle or posterior cerebral arteries. No evidence for aneurysm of the [place]. Contrast opacification of the major dural venous si nuses is present as expected. Impression: 1. No evidence for aneurysm of the [place] or flow limiting stenosis or occlusion of the ant erior, middle or posterior cerebral arteries. 2. Mild to moderate left greater than right intradural vertebral artery stenosis where there is calci fied atherosclerotic plaque. 3. Prominent cavernous and paraclinoid ICA atherosclerotic calcifications. 4. No CT evidence for acute hemorrhage, [facility] Referring Provider Line: [phone] SITE ID: [id number]
[2017-11-20] MEDS: ATORVASTATIN 40 MG TABLET PO SCH (20:53)
[2017-11-20] MEDS ORDERED: INSULIN 70/30 HUMAN 100 UNIT/1 ML 10 ML MDV SUBQ SCH (22:00)
[2017-11-21] MEDS: HALOPERIDOL 5 MG/ML VIAL IM PRN ×2 (02:27→20:12)
[2017-11-21 03:19] LABS: BASOPHILS # (AUTO) 0.1 10^3/uL (0.0-0.1); BASOPHILS % (AUTO) 1.1 %; EOSINOPHILS # (AUTO) 0.3 10^3/uL (0.0-0.7); EOSINOPHILS % (AUTO) 3.9 %; HGB - HEMOGLOBIN 14.5 g/dL (14.0-18.0); LYMPHOCYTES # (AUTO) 1.6 10^3/uL (1.5-3.5); LYMPHOCYTES % (AUTO) 21.2 %; MEAN CORPUSCULAR HEMOGLOBIN 28.1 pg (27.0-31.0); MEAN CORPUSCULAR HGB CONC 32.5 g/dL (32.0-36.0); MEAN CORPUSCULAR VOLUME 86.3 fL (80.0-94.0); MEAN PLATELET VOLUME 9.7 fL (7.4-11.4); MONOCYTES # (AUTO) 0.7 10^3/uL (0.0-1.0); MONOCYTES % (AUTO) 8.6 %; NEUTROPHILS % (AUTO) 65.2 %; PLT - PLATELET COUNT 146 10^3/uL (130-450); RED BLOOD COUNT 5.17 10^6/uL (4.70-6.10); RED CELL DISTRIBUTION WIDTH 15.8 % (12.0-15.0); WHITE BLOOD COUNT 7.6 x10^3/uL (4.8-10.8)
[2017-11-21 03:25] LABS: INR 1.1 (0.8-1.2); PT - PROTHROMBIN TIME 12.3 secs (9.9-12.6)
[2017-11-21 03:39] LABS: ALBUMIN 3.5 g/dL (3.2-5.5); ALBUMIN/GLOBULIN RATIO 1.4 (1.0-2.2); ALKALINE PHOSPHATASE 78 IU/L (42-121); ALT ALANINE AMINOTRANSFERASE 49 IU/L (10-60); AST ASPARTATE AMINOTRANSFERASE 60 IU/L (10-42); BILIRUBIN,TOTAL 0.7 mg/dL (0.2-1.0); BUN - BLOOD UREA NITROGEN 24 mg/dL (6-20); CALCIUM 8.8 mg/dL (8.5-10.3); CARBON DIOXIDE - CO2 23 mmol/L (21-32); CHLORIDE 110 mmol/L (101-111); CHOL/HDL RATIO 3.1 (<5.0); CHOLESTEROL 108 mg/dL; CREATININE 1.3 mg/dL (0.6-1.2); GFR - MDRD 52 (>89); GLUCOSE 103 mg/dL (70-100); HDL CHOLESTEROL 35 mg/dL; LDL CHOLESTEROL,CALCULATED 62 mg/dL; LDL/HDL RATIO 1.8 (<3.6); SODIUM 141 mmol/L (135-145); VLDL CHOLESTEROL 11 mg/dL
[2017-11-21 03:49] LABS: HB2 TOTAL 15.5 g/dL; HEMOGLOBIN A1C 0.75 g/dL; HEMOGLOBIN A1C % 6.6 % (4.6-6.2)
[2017-11-21] MEDS: SODIUM CHLORIDE FLUSH 0.9% 10 ML SYRINGE IVP SCH ×4 (06:50→20:22)
[2017-11-21] MEDS ORDERED: INSULIN GLARGINE 300 UNIT/3 ML PEN SUBQ SCH ×2 (09:00→12:40)
--- NOTE | 2017-11-21 09:06 | HISTORY & PHYSICAL EXAMINATION ---
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 The patient was in his normal state of health until just a few days ago when he began to become increasingly confused. The patient lives alone but does have caregivers that come into the house and the caregivers were noticing that he was becoming very forgetful and saying unusual things. The patient could not remember his cats name for instance and thought that he had a dog when he has never had a dog. Today the patient was even more confused and therefore the caregivers called EMS and the patient was brought into the emergency department. The patient has not been having any recent symptoms of fever, cough , nausea, vomiting, diarrhea, he has not had any recent medication changes. The patient is a poor historian given his confusion but does deny any headaches , blurred vision, runny nose, sore throat, nasal congestion, chest pain, shortness of air, orthopnea, PND, increased lower extremity swelling, abdominal pain, dysuria, increased urinary frequency, joint swelling, joint pain, muscle aches, back pain, neck stiffness, or any focal neurologic deficits. On presentation to the emergency department the patient was still quite confused. He had difficulty answering a lot of the questions from the emergency room physician. The patient did not have any focal neurologic findings on examination. The emergency room physician did routine labs which revealed a mildly elevated creatinine but were otherwise within normal limits including a normal WBC. The patient was found to have slightly elevated troponin of 0.18 but without any chest pain and with no EKG changes. The patient 's urine was negative for infection. The patient did undergo a chest x-ray which was negative for any acute infiltrates there was however a small right pleural effusion. The patient had a CT of his head in the emergency department which showed generalized age-related cortical atrophic changes without evidence of acute intracranial abnormality. Patient also underwent a CT angios his head and neck which did show some atherosclerotic changes but there was no flow- limiting stenosis. The patient was placed in observation for further workup given his acute encephalopathy. We will also get serial troponins given the initial bump in troponin. History - Past Medical History Cardiovascular: reports: Hypertension, Peripheral Vascular Disease Neuro: reports: Peripheral neuropathy Endocrine/Autoimmune: reports: Type 2 diabetes GI: reports: Ulcers : reports: Benign prostate hypertrophy Musculoskeletal: reports: Osteoarthritis MRSA Hx?: No - Past Surgical History General: reports: Cholecystectomy, Appendectomy Ortho: reports: Carpal Tunnel surgery - Family & Social History Family History: Mother: , Diabetes, Type 2, Father: , Sister: Diabetes, Type 2 Social History Notes: The patient lives in [place], [place]. He is , his about 13 years ago. He was to her for 52 years. He has 1 daughter who lives in [place]. 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 He was born in [place], [place] and has lived on [facility] for 44 years. The patient quit smoking at the age of 41. Prior to that he smoked 2 packs a day for about 20 years. The patient does not drink alcohol and denies any illicit drug use. - POLST POLST Status: DNR Meds/Allgy - Home Medications Home Medications: Ambulatory Orders Medication Instructions Recorded Confirmed Insulin NPH Hum/Reg Insulin Hm 25 unit SUBQ 0730 05/26/14 11/20/17 [Novolin 70-30 100 Unit/ml Vial] metFORMIN [Glucophage] 500 mg PO BIDWM 03/04/16 11/20/17 Insulin Glargine [Lantus Solostar] 50 units SQ DAILY@0800 11/13/17 11/20/17 Insulin NPH Hum/Reg Insulin Hm 24 units SUBQ 1630 11/20/17 11/20/17 [Humulin 70-30 Vial] - Allergies Allergies/Adverse Reactions: Allergies Allergy/AdvReac Type Severity Reaction Status Date / Time No Known Drug Allergies Allergy Verified 11/20/17 13:50 Review of Systems - Other Findings Other Findings: A comprehensive review of systems was performed the pertinent positives and negatives are stated above in the HPI and the remainder of the review of systems is negative. Exam - Vital Signs Reviewed Vital Signs: Yes Vital Signs: Vital Signs x48h Pulse Resp BP Pulse Ox 11/21/17 08:01 69 16 120/85 H 95 11/21/17 05:10 67 18 140/90 H 96 - Physical Exam General Appearance: positive: Alert, Other (Patient is confused, laughs inappropriately, initially spoken a word salad but then began answering questions more appropriately. Appears to have waxing and waning confusion.) Eyes Bilateral: positive: Normal inspection, PERRL, EOMI, No lid inflammation, Conjunctivae nml, No scleral icterus ENT: positive: ENT inspection nml, Pharynx nml, No signs of dehydration. negative: Purulent nasal drainage, Pharyngeal erythema, Oral lesions Neck: positive: Nml inspection, Thyroid nml, No JVD, Trachea midline. negative : Thyromegaly, Lymphadenopathy (R), Lymphadenopathy (L), Stiff neck, Carotid bruit, Tracheal deviation Respiratory: positive: Chest non-tender, No respiratory distress, Breath sounds nml. negative: Wheezes, Rales, Rhonchi Cardiovascular: positive: Regular rate & rhythm, No murmur, No gallop Peripheral Pulses: positive: 2+ Abdomen: positive: Non-tender, No organomegaly, Nml bowel sounds, No distention. negative: Guarding, Rebound, Hepatomegaly Back: positive: Nml inspection. negative: CVA tenderness (R), CVA tenderness (L ) Skin: positive: Color nml, No rash, Warm. negative: Cyanosis, Diaphoresis Extremities: positive: Non-tender, Full ROM, Nml appearance, No pedal edema Neurologic/Psychiatric: positive: CN's nml (2-12), Motor nml, Sensation nml, Mood/affect nml, Disoriented to time, Slurred/abnml speech, Other (Initially was speaking a word salad and was extremely confused but eventually began answering questions more appropriately. Appears to be having waxing and waning confusion.) Conclusion/Plan - Problem List (1) Acute encephalopathy Conclusion/Plan: Patient presented with acute encephalopathy. The patient does have confusion for the last several days. In presentation to the emergency department he continued to be confused and on presentation to the medical ortega was also having confusion with what appeared to be word salad. The patient however seem to have waxing and waning sort of confusion but definitely did not appear to be himself. The patient does not appear to have any infection the only abnormal finding was pleural effusion on his chest x-ray. The patient's troponin was mildly elevated but it would be unusual for the patient to have confusion from an TN. The patient also did not have any EKG changes or chest pain. The patient did not have any focal deficits on examination. I am concerned for the possibility of TIA/stroke in this patient with history of diabetes. Patient's initial CT and CTA did not show any significant acute changes. Plan: Check TSH, B12, urine tox screen, acetaminophen level and salicylate level. MRI brain Neurochecks Telemetry monitoring Close observation If patient spikes fever we will consider LP and starting antibiotics. (2) Troponin I above reference range Conclusion/Plan: On routine lab work patient was found to have a troponin of 0.18. The patient did not have any previous troponin for reference. The patient's EKG appeared to be unchanged from previous. The patient did not have any chest pain or shortness of air. Plan: Serial troponins and echocardiogram Telemetry monitoring (3) Thyroid nodule Conclusion/Plan: Patient does have thyroid nodule seen on CT angios the neck Plan: Ultrasound of the thyroid for better evaluation Check TSH (4) Diabetes Conclusion/Plan: The patient has a history of diabetes which puts him at risk for possible stroke or TIA. Patient's blood glucose was controlled on presentation The patient is on Lantus and metformin at home given his confusion the patient may be having some issues with blood glucose and could be having periods of hypoglycemia. Plan: We will monitor patient's blood glucose while he is hospitalized before meals at bedtime We will continue the patient's home dose of Lantus and place him on sliding scale insulin Patient was placed on diabetic diet We will check hemoglobin A1c Qualifiers: Diabetes mellitus type: type 2 - Lab Results Lab results reviewed: Yes Fish Bones: 11/21/17 03:11 11/21/17 03:11 Other Lab Results: Laboratory Results WBC 7.6 x10^3/uL (4.8-10.8) 11/21/17 03:11 RBC 5.17 10^6/uL (4.70-6.10) 11/21/17 03:11 Hgb 14.5 g/dL (14.0-18.0) 11/21/17 03:11 Hct 44.6 % (42.0-52.0) 11/21/17 03:11 MCV 86.3 fL (80.0-94.0) 11/21/17 03:11 MCH 28.1 pg (27.0-31.0) 11/21/17 03:11 MCHC 32.5 g/dL (32.0-36.0) 11/21/17 03:11 RDW 15.8 % (12.0-15.0) H 11/21/17 03:11 Plt Count 146 10^3/uL (130-450) 11/21/17 03:11 MPV 9.7 fL (7.4-11.4) 11/21/17 03:11 Neut # 5.0 10^3/uL (1.5-6.6) 11/21/17 03:11 Lymph # 1.6 10^3/uL (1.5-3.5) 11/21/17 03:11 [place] # 0.7 10^3/uL (0.0-1.0) 11/21/17 03:11 Eos # 0.3 10^3/uL (0.0-0.7) 11/21/17 03:11 Baso # 0.1 10^3/uL (0.0-0.1) 11/21/17 03:11 Absolute Nucleated RBC 0.01 x10^3/uL 11/21/17 03:11 Nucleated RBC % 0.1 /100WBC 11/21/17 03:11 PT 12.3 secs (9.9-12.6) 11/21/17 03:11 INR 1.1 (0.8-1.2) 11/21/17 03:11 Sodium 141 mmol/L (135-145) 11/21/17 03:11 Potassium 4.6 mmol/L (3.5-5.0) 11/21/17 03:11 Chloride 110 mmol/L (101-111) 11/21/17 03:11 Carbon Dioxide 23 mmol/L (21-32) 11/21/17 03:11 Anion Gap 8.0 (6-13) 11/21/17 03:11 BUN 24 mg/dL (6-20) H 11/21/17 03:11 Creatinine 1.3 mg/dL (0.6-1.2) H 11/21/17 03:11 Estimated GFR (MDRD) 52 (>89) L 11/21/17 03:11 Glucose 103 mg/dL (70-100) H 11/21/17 03:11 POC Whole Bld Glucose 93 mg/dL (70 - 100) 11/20/17 21:26 Glycated Hemoglobin 6.6 % (4.6-6.2) H 11/21/17 03:11 Estim Average Glucose 143 (70-100) H 11/21/17 03:11 Calcium 8.8 mg/dL (8.5-10.3) 11/21/17 03:11 Total Bilirubin 0.7 mg/dL (0.2-1.0) 11/21/17 03:11 AST 60 IU/L (10-42) H 11/21/17 03:11 ALT 49 IU/L (10-60) 11/21/17 03:11 Alkaline Phosphatase 78 IU/L (42-121) 11/21/17 03:11 Troponin I 0.19 ng/mL (<0.49) 11/21/17 03:11 B-Natriuretic Peptide 1398 pg/mL (5-100) H 11/21/17 03:11 Total Protein 6.0 g/dL (6.7-8.2) L 11/21/17 03:11 Albumin 3.5 g/dL (3.2-5.5) 11/21/17 03:11 Globulin 2.5 g/dL (2.1-4.2) 11/21/17 03:11 Albumin/Globulin Ratio 1.4 (1.0-2.2) 11/21/17 03:11 Triglycerides 57 mg/dL (-149) 11/21/17 03:11 Cholesterol 108 mg/dL (-199) 11/21/17 03:11 LDL Cholesterol, Calc 62 mg/dL (-129) 11/21/17 03:11 VLDL Cholesterol 11 mg/dL 11/21/17 03:11 HDL Cholesterol 35 mg/dL (60-) L 11/21/17 03:11 LDL/HDL Ratio 1.8 (<3.6) 11/21/17 03:11 Cholesterol/HDL Ratio 3.1 (<5.0) 11/21/17 03:11 Lipase 33 U/L (22-51) 11/20/17 15:47 Vitamin B12 1379 pg/mL (180-914) H 11/20/17 15:47 Folate 30.00 ng/mL (5.90 - >24.8) 11/20/17 15:47 TSH 4.33 uIU/mL (0.34-5.60) 11/20/17 15:47 Urine Color YELLOW 11/20/17 14:00 Urine Clarity CLEAR (CLEAR) 11/20/17 14:00 Urine pH 5.5 PH (5.0-7.5) 11/20/17 14:00 Ur Specific [place] >=1.030 (1.002-1.030) H 11/20/17 14:00 Urine Protein TRACE mg/dL (NEGATIVE) 11/20/17 14:00 Urine Glucose (UA) NEGATIVE mg/dL (NEGATIVE) 11/20/17 14:00 Urine Ketones NEGATIVE mg/dL (NEGATIVE) 11/20/17 14:00 Urine Occult Blood TRACE-INTA (NEGATIVE) 11/20/17 14:00 Urine Nitrite NEGATIVE (NEGATIVE) 11/20/17 14:00 Urine Bilirubin NEGATIVE (NEGATIVE) 11/20/17 14:00 Urine Urobilinogen 0.2 (NORMAL) E.U./dL (NORMAL) 11/20/17 14:00 Ur Leukocyte Esterase NEGATIVE (NEGATIVE) 11/20/17 14:00 Ur Microscopic Review NOT INDICATED 11/20/17 14:00 Urine Culture Comments NOT INDICATED 11/20/17 14:00 Salicylates < 6.0 mg/dL 11/20/17 15:47 Urine Opiates Screen NEGATIVE (NEGATIVE) 11/20/17 14:00 Ur Oxycodone Screen NEGATIVE (NEGATIVE) 11/20/17 14:00 Urine Methadone Screen NEGATIVE (NEGATIVE) 11/20/17 14:00 Ur Propoxyphene Screen NEGATIVE (NEGATIVE) 11/20/17 14:00 Acetaminophen < 10 ug/mL (10-30) L 11/20/17 15:47 Ur Barbiturates Screen NEGATIVE (NEGATIVE) 11/20/17 14:00 Ur Tricyclics Screen NEGATIVE (NEGATIVE) 11/20/17 14:00 Ur Phencyclidine Scrn NEGATIVE (NEGATIVE) 11/20/17 14:00 Ur Amphetamine Screen NEGATIVE (NEGATIVE) 11/20/17 14:00 U Methamphetamines Scrn NEGATIVE (NEGATIVE) 11/20/17 14:00 U Benzodiazepines Scrn NEGATIVE (NEGATIVE) 11/20/17 14:00 Urine Cocaine Screen NEGATIVE (NEGATIVE) 11/20/17 14:00 U Cannabinoids Screen NEGATIVE (NEGATIVE) 11/20/17 14:00 - Diagnostic Imaging Results Diagnostic Imaging Results: positive: Final report reviewed Diagnostic Imaging Results Comments: Chest x-ray Impression: 1. New small right pleural effusion 2. Otherwise unchanged CT head Impression: Generalized age-related cortical atrophic changes without evidence of acute intracranial abnormality CT angiogram head Impression: 1. No evidence for aneurysm of the [place] or flow-limiting stenosis or occlusion of the anterior, middle or posterior cerebral arteries. 2. Mild to moderate left greater than right intra-dural vertebral artery stenosis where there is calcified atherosclerotic plaque. 3. Prominent cavernous and para clinoid ICA atherosclerotic calcification. 4. No evidence of acute hemorrhage CT angiogram of the neck Impression: 1. 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 2. The cervical vertebral arteries appear patent but evaluation is limited and may be considered incomplete in the low neck. 3. Potentially flow-limiting focal stenosis with prominent calcified plaque at the right subclavian artery. 4. Arterial evaluation in the neck is somewhat limited secondary to relatively dilute intra-arterial contrast. 5. Pleural effusions right greater than left 6. Chronic advanced multilevel degenerative cervical spinal spondylosis with cervical levoscoliosis 7. Ultrasound could be used to more accurately define a suspected 1.5 cm right thyroid nodule. - EKG Results EKG Interpreted Independently: Yes EKG Comparison: Unchanged from prior EKG Core Measures - Anticipated LOS I expect patient to be DC'd or transferred within 96 hours.: Yes - Issues Hospital Issues and Management Plan: Patient was seen and examined on 11/20/2017. This is a late entry. - DVT/VTE - Prophylaxis VTE/DVT Prophylaxis med ordered at admit?: Yes
[2017-11-21] MEDS: INSULIN ASPART 300 UNIT/3 ML PEN SUBQ SCH ×4 (09:19→20:19)
[2017-11-21] MEDS: FAMOTIDINE 20 MG TABLET PO SCH (10:18)
[2017-11-21] MEDS: ASPIRIN 325 MG TABLET PO SCH (10:19)
[2017-11-21] MEDS: POLYETHYLENE GLYCOL 3350 17 GM PACKET PO SCH (10:19)
[2017-11-21] MEDS ORDERED: LORazepam 2 MG/ML VIAL IVP SCH ×2 (12:00→14:00)
[2017-11-21] MEDS ORDERED: SODIUM CHLORIDE FLUSH 0.9% 10 ML SYRINGE IVP ONE (12:26)
--- NOTE | 2017-11-21 15:05 | Ultrasound Preliminary Report ---
Exam: US HEAD OR NECK SOFT TISSUE IMPRESSION: 1. Right lower pole cystic nodule measuring 15 mm may correspond to the nodule identified by CT. 2. There is a shadowing structure measuring 16mm abutting or arising from the upper pole of the right thyroid lobe, possibly vascular, versus calcified thyroid nodule not clearly visualized on the prior CT. Management recommendations are based on 2015 [place] [employer] Management Guidelines for A dult Patients with Thyroid Nodules and Differentiated Thyroid Cancer. [facility] SITE ID: [id number]
--- NOTE | 2017-11-21 15:05 | Ultrasound Report ---
EXAM: THYROID ULTRASOUND EXAM DATE: 11/21/2017 01:59 PM. CLINICAL HISTORY: Thyroid nodule evaluation. COMPARISON: CT neck 11/20/2017. TECHNIQUE: Real time sonographic imaging of the thyroid was performed by the combine mechanic. Multiple re presentative static images were saved for review. FINDINGS: THYROID GLAND: Right Lobe: 4.2 x 2.3 x 1.3 cm, volume 6.6 cc. Normal background echotexture. Right Lobe Nodules: 1. Shadowing structure measuring 16 x 14 x 14 mm abutting or arising from the upper pole of the right thyroid lobe, possibly vascular, versus calcified nodule not clearly visualized on the prior CT. 2. Lower pole 15 x 14 x 13 mm cystic nodule, which may correspond to the nodule identified by CT. Left Lobe: 3.4 x 2.1 x 1.0 cm, volume 3.7 cc. Normal background echotexture. Left Lobe Nodules: None. Isthmus: Not well-visualized. Isthmic Nodules: None. LYMPH NODES: No adenopathy demonstrated in the central or lateral compartment. OTHER: None. IMPRESSION: 1. Right lower pole cystic nodule measuring 15 mm may correspond to the nodule identified by CT. 2. There is a shadowing structure measuring 16mm abutting or arising from the upper pole of the right thyroid lobe, possibly vascular, versus calcified thyroid nodule not clearly visualized on the prior CT. Management recommendations are based on 2015 [place] [employer] Management Guidelines for A dult Patients with Thyroid Nodules and Differentiated Thyroid Cancer. [facility] Referring Provider Line: [phone] SITE ID: [id number]
[2017-11-21] MEDS: ATORVASTATIN 40 MG TABLET PO SCH (20:15)
[2017-11-22] MEDS: HALOPERIDOL 5 MG/ML VIAL IM PRN (02:50)
[2017-11-22] MEDS: SODIUM CHLORIDE FLUSH 0.9% 10 ML SYRINGE IVP SCH (06:18)
[2017-11-22 06:50] LABS: BASOPHILS # (AUTO) 0.1 10^3/uL (0.0-0.1); BASOPHILS % (AUTO) 1.1 %; EOSINOPHILS # (AUTO) 0.2 10^3/uL (0.0-0.7); EOSINOPHILS % (AUTO) 3.2 %; HGB - HEMOGLOBIN 14.1 g/dL (14.0-18.0); LYMPHOCYTES # (AUTO) 1.3 10^3/uL (1.5-3.5); LYMPHOCYTES % (AUTO) 22.8 %; MEAN CORPUSCULAR HEMOGLOBIN 28.3 pg (27.0-31.0); MEAN CORPUSCULAR HGB CONC 32.2 g/dL (32.0-36.0); MEAN CORPUSCULAR VOLUME 87.7 fL (80.0-94.0); MONOCYTES # (AUTO) 0.5 10^3/uL (0.0-1.0); MONOCYTES % (AUTO) 9.1 %; NEUTROPHILS # (AUTO) 3.7 10^3/uL (1.5-6.6); NEUTROPHILS % (AUTO) 63.8 %; PLT - PLATELET COUNT 107 10^3/uL (130-450); RED BLOOD COUNT 4.99 10^6/uL (4.70-6.10); RED CELL DISTRIBUTION WIDTH 15.5 % (12.0-15.0); WHITE BLOOD COUNT 5.7 x10^3/uL (4.8-10.8)
[2017-11-22 07:07] LABS: ALBUMIN 3.3 g/dL (3.2-5.5); ALBUMIN/GLOBULIN RATIO 1.5 (1.0-2.2); BILIRUBIN,TOTAL 0.9 mg/dL (0.2-1.0); CALCIUM 8.5 mg/dL (8.5-10.3); CREATININE 1.3 mg/dL (0.6-1.2); TOTAL PROTEIN 5.5 g/dL (6.7-8.2)
[2017-11-22] MEDS: ASPIRIN 325 MG TABLET PO SCH (10:33)
[2017-11-22] MEDS: FAMOTIDINE 20 MG TABLET PO SCH (10:33)
[2017-11-22] MEDS: POLYETHYLENE GLYCOL 3350 17 GM PACKET PO SCH (10:33)
[2017-11-22] MEDS: INSULIN ASPART 300 UNIT/3 ML PEN SUBQ SCH ×2 (10:51→13:14)
--- NOTE | 2017-11-22 11:05 | Discharge Plan ---
Discharge Plan Disposition: 01 Home, Self Care Condition: Fair Prescriptions: Aspirin [Aspirin EC] 81 mg PO DAILY #30 tablet. Diet: Diabetic Activity Restrictions: Activity as Tolerated Shower Restrictions: No Driving Restrictions: No Assistance Devices: Walker Weight Bearing: Full Weight Additional Instructions or Follow Up instructions: You presented to emergency department with confusion and altered mentation. This continued to occur off and on through your hospitalization. We did not find any infection and our CT of your head and CT angiogram of your head and neck did not show any obvious stroke. We were unable to do an MRI as you became agitated and kept moving when we put you into MRI. We believe that the most likely cause of your confusion is that you may be having some mini strokes and therefore we are placing you on aspirin to try to prevent these in the future. He will be discharged home in the care of your daughter and will continue to need caregiver support at home. If your symptoms progress we suggest talking to her primary care physician about an assisted living facility or intermediate so that you can have more support. No Smoking: If you smoke, Please STOP! Call for help. Follow-up with: ALMA VALERA MD [Primary Care Provider] -
--- NOTE | 2017-11-22 11:57 | DISCHARGE SUMMARY ---
Discharge Summary Admit Date: 11/20/17 Discharge Date: 11/22/17 Discharging Provider: Mike Polanco MD Primary Care Provider: Felipe Hawthorne MD Code Status: Attempt Resuscitation Condition at Discharge: Fair Discharge Disposition: 01 Home, Self Care - DIAGNOSES Admission Diagnoses: 1. Acute encephalopathy 2. Elevated troponin 3. Thyroid nodule 4. Diabetes Discharge Diagnoses with Status of Each Condition: 1. Acute encephalopathy: Stable 2. Systolic heart failure: Stable 3. Elevated troponin: Stable 4. Thyroid nodule: Stable 5. 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 The patient was in his normal state of health until just a few days ago when he began to become increasingly confused. The patient lives alone but does have caregivers that come into the house and the caregivers were noticing that he was becoming very forgetful and saying unusual things. The patient could not remember his cats name for instance and thought that he had a dog when he has never had a dog. Today the patient was even more confused and therefore the caregivers called EMS and the patient was brought into the emergency department. The patient has not been having any recent symptoms of fever, cough , nausea, vomiting, diarrhea, he has not had any recent medication changes. The patient is a poor historian given his confusion but does deny any headaches , blurred vision, runny nose, sore throat, nasal congestion, chest pain, shortness of air, orthopnea, PND, increased lower extremity swelling, abdominal pain, dysuria, increased urinary frequency, joint swelling, joint pain, muscle aches, back pain, neck stiffness, or any focal neurologic deficits. On presentation to the emergency department the patient was still quite confused. He had difficulty answering a lot of the questions from the emergency room physician. The patient did not have any focal neurologic findings on examination. The emergency room physician did routine labs which revealed a mildly elevated creatinine but were otherwise within normal limits including a normal WBC. The patient was found to have slightly elevated troponin of 0.18 but without any chest pain and with no EKG changes. The patient 's urine was negative for infection. The patient did undergo a chest x-ray which was negative for any acute infiltrates there was however a small right pleural effusion. The patient had a CT of his head in the emergency department which showed generalized age-related cortical atrophic changes without evidence of acute intracranial abnormality. Patient also underwent a CT angios his head and neck which did show some atherosclerotic changes but there was no flow- limiting stenosis. The patient was placed in observation for further workup given his acute encephalopathy. We will also get serial troponins given the initial bump in troponin. - HOSPITAL COURSE Hospital Course: Patient was initially placed in observation and underwent CT imaging of his brain with CT head, CT angios of the head and neck. There was no findings of any acute infarct. The patient also underwent serial troponins and telemetry monitoring. The patient's troponin peaked at 0.20 and then decreased to 0.19. The patient had no abnormal findings on telemetry. The patient did not complain of any chest pain or shortness of air during the hospitalization. The patient's echocardiogram however did reveal moderate to severely impaired left ventricular ejection fraction of 30-35%. There was moderate global hypokinesis of the left ventricle and impaired relaxation with grade 1 diastolic dysfunction. The patient did not have any mass or thrombus. Attempt was made to get an MRI as the thought process was that the patient likely had a TIA or potentially has had a stroke. The patient did not tolerate MRI despite being sedated with Ativan. The patient's medications were optimized for congestive heart failure with addition of metoprolol and lisinopril to his previous regimen. The patient's hemoglobin A1c was found to be 6.6 which is excellent but at his age there would be concern for possible hypoglycemia and patient's blood sugar did drop to as low as 59 while he was hospitalized therefore his insulin dose was adjusted down and his Lantus was decreased to 35 units daily. The patient was started on aspirin as a preventative measure for any future TIAs or strokes. The patient did have a short run of V. tach while he was hospitalized of 7 beats but had no further arrhythmias. The patient remained in sinus rhythm during the hospitalization. The patient was converted to inpatient as he was not ready for discharge after the first midnight due to continued delirium and confusion. On the day of discharge the patient mental status was improved but still not back to his baseline and it was explained to the daughter that this may be his new baseline. We did offer support and information regarding placement for the patient and the daughter stated that she would look into it further if the patient does not have improvement. The patient was discharged home with his daughter who will take care of him over the next several days and then he will go back to having caregivers and a guest room attendant who lives on the premises. The patient will need to follow-up with his primary care physician in regards to his diabetes as well as his congestive heart failure. The patient was also found to have a thyroid nodule during the hospitalization and will need follow-up regarding that as well. - ALLERGIES Allergies/Adverse Reactions: Allergies Allergy/AdvReac Type Severity Reaction Status Date / Time No Known Drug Allergies Allergy Verified 11/20/17 13:50 - MEDICATIONS Home Medications: Ambulatory Orders Medication Instructions Recorded Confirmed Insulin NPH Hum/Reg Insulin Hm 25 unit SUBQ 0730 05/26/14 11/20/17 [Novolin 70-30 100 Unit/ml Vial] metFORMIN [Glucophage] 500 mg PO BIDWM 03/04/16 11/20/17 Insulin NPH Hum/Reg Insulin Hm 24 units SUBQ 1630 11/20/17 11/20/17 [Humulin 70-30 Vial] Aspirin [Aspirin EC] 81 mg PO DAILY #30 tablet. 11/22/17 Insulin Glargine [Lantus Solostar] 35 unit TD QPM #1 pen 11/22/17 Lisinopril 2.5 mg PO DAILY #30 tablet 11/22/17 Metoprolol Tartrate [Lopressor] 25 mg PO BID #60 tablet 11/22/17 - PHYSICAL EXAM AT DISCHARGE General Appearance: positive: No acute distress, Alert, Other (Patient knows his name and where he is but cannot tell me the date) Eyes Bilateral: positive: Normal inspection, PERRL, EOMI, No lid inflammation, Conjunctivae nml, No scleral icterus ENT: positive: ENT inspection nml, Pharynx nml, No signs of dehydration. negative: Purulent nasal drainage, Pharyngeal erythema, Oral lesions Neck: positive: Nml inspection, Thyroid nml, No JVD, Trachea midline. negative : Thyromegaly, Lymphadenopathy (R), Lymphadenopathy (L), Stiff neck, Carotid bruit, Tracheal deviation Respiratory: positive: Chest non-tender, No respiratory distress, Rales (Basis) . negative: Wheezes, Rhonchi Cardiovascular: positive: Regular rate & rhythm, No murmur, No gallop Peripheral Pulses: positive: 2+ Abdomen: positive: Non-tender, No organomegaly, Nml bowel sounds, No distention. negative: Guarding, Rebound, Hepatomegaly Back: positive: Nml inspection. negative: CVA tenderness (R), CVA tenderness (L ) Skin: positive: Color nml, No rash, Warm. negative: Cyanosis, Pallor Extremities: positive: Non-tender, Full ROM, Nml appearance, No pedal edema Neurologic/Psychiatric: positive: CN's nml (2-12), Motor nml, Sensation nml, Other (Oriented 2) - LABS Result Diagrams: 11/22/17 06:26 11/22/17 06:26 Other Lab Results: Laboratory Results WBC 5.7 x10^3/uL (4.8-10.8) 11/22/17 06:26 RBC 4.99 10^6/uL (4.70-6.10) 11/22/17 06:26 Hgb 14.1 g/dL (14.0-18.0) 11/22/17 06:26 Hct 43.7 % (42.0-52.0) 11/22/17 06:26 MCV 87.7 fL (80.0-94.0) 11/22/17 06:26 MCH 28.3 pg (27.0-31.0) 11/22/17 06:26 MCHC 32.2 g/dL (32.0-36.0) 11/22/17 06:26 RDW 15.5 % (12.0-15.0) H 11/22/17 06:26 Plt Count 107 10^3/uL (130-450) L 11/22/17 06:26 MPV 10.0 fL (7.4-11.4) 11/22/17 06:26 Neut # 3.7 10^3/uL (1.5-6.6) 11/22/17 06:26 Lymph # 1.3 10^3/uL (1.5-3.5) L 11/22/17 06:26 [place] # 0.5 10^3/uL (0.0-1.0) 11/22/17 06:26 Eos # 0.2 10^3/uL (0.0-0.7) 11/22/17 06:26 Baso # 0.1 10^3/uL (0.0-0.1) 11/22/17 06:26 Absolute Nucleated RBC 0.00 x10^3/uL 11/22/17 06:26 Nucleated RBC % 0.0 /100WBC 11/22/17 06:26 PT 12.3 secs (9.9-12.6) 11/21/17 03:11 INR 1.1 (0.8-1.2) 11/21/17 03:11 Sodium 141 mmol/L (135-145) 11/22/17 06:26 Potassium 4.3 mmol/L (3.5-5.0) 11/22/17 06:26 Chloride 111 mmol/L (101-111) 11/22/17 06:26 Carbon Dioxide 24 mmol/L (21-32) 11/22/17 06:26 Anion Gap 6.0 (6-13) 11/22/17 06:26 BUN 23 mg/dL (6-20) H 11/22/17 06:26 Creatinine 1.3 mg/dL (0.6-1.2) H 11/22/17 06:26 Estimated GFR (MDRD) 52 (>89) L 11/22/17 06:26 Glucose 111 mg/dL (70-100) H 11/22/17 06:26 POC Whole Bld Glucose 173 mg/dL (70 - 100) H 11/22/17 11:28 Glycated Hemoglobin 6.6 % (4.6-6.2) H 11/21/17 03:11 Estim Average Glucose 143 (70-100) H 11/21/17 03:11 Calcium 8.5 mg/dL (8.5-10.3) 11/22/17 06:26 Total Bilirubin 0.9 mg/dL (0.2-1.0) 11/22/17 06:26 AST 43 IU/L (10-42) H 11/22/17 06:26 ALT 44 IU/L (10-60) 11/22/17 06:26 Alkaline Phosphatase 69 IU/L (42-121) 11/22/17 06:26 Ammonia 11.0 umol/L (7-35) 11/21/17 08:55 Troponin I 0.19 ng/mL (<0.49) 11/21/17 03:11 B-Natriuretic Peptide 1398 pg/mL (5-100) H 11/21/17 03:11 Total Protein 5.5 g/dL (6.7-8.2) L 11/22/17 06:26 Albumin 3.3 g/dL (3.2-5.5) 11/22/17 06:26 Globulin 2.2 g/dL (2.1-4.2) 11/22/17 06:26 Albumin/Globulin Ratio 1.5 (1.0-2.2) 11/22/17 06:26 Triglycerides 57 mg/dL (-149) 11/21/17 03:11 Cholesterol 108 mg/dL (-199) 11/21/17 03:11 LDL Cholesterol, Calc 62 mg/dL (-129) 11/21/17 03:11 VLDL Cholesterol 11 mg/dL 11/21/17 03:11 HDL Cholesterol 35 mg/dL (60-) L 11/21/17 03:11 LDL/HDL Ratio 1.8 (<3.6) 11/21/17 03:11 Cholesterol/HDL Ratio 3.1 (<5.0) 11/21/17 03:11 Lipase 33 U/L (22-51) 11/20/17 15:47 Vitamin B12 1379 pg/mL (180-914) H 11/20/17 15:47 Folate 30.00 ng/mL (5.90 - >24.8) 11/20/17 15:47 TSH 4.33 uIU/mL (0.34-5.60) 11/20/17 15:47 Urine Color YELLOW 11/20/17 14:00 Urine Clarity CLEAR (CLEAR) 11/20/17 14:00 Urine pH 5.5 PH (5.0-7.5) 11/20/17 14:00 Ur Specific [place] >=1.030 (1.002-1.030) H 11/20/17 14:00 Urine Protein TRACE mg/dL (NEGATIVE) 11/20/17 14:00 Urine Glucose (UA) NEGATIVE mg/dL (NEGATIVE) 11/20/17 14:00 Urine Ketones NEGATIVE mg/dL (NEGATIVE) 11/20/17 14:00 Urine Occult Blood TRACE-INTA (NEGATIVE) 11/20/17 14:00 Urine Nitrite NEGATIVE (NEGATIVE) 11/20/17 14:00 Urine Bilirubin NEGATIVE (NEGATIVE) 11/20/17 14:00 Urine Urobilinogen 0.2 (NORMAL) E.U./dL (NORMAL) 11/20/17 14:00 Ur Leukocyte Esterase NEGATIVE (NEGATIVE) 11/20/17 14:00 Ur Microscopic Review NOT INDICATED 11/20/17 14:00 Urine Culture Comments NOT INDICATED 11/20/17 14:00 Salicylates < 6.0 mg/dL 11/20/17 15:47 Urine Opiates Screen NEGATIVE (NEGATIVE) 11/20/17 14:00 Ur Oxycodone Screen NEGATIVE (NEGATIVE) 11/20/17 14:00 Urine Methadone Screen NEGATIVE (NEGATIVE) 11/20/17 14:00 Ur Propoxyphene Screen NEGATIVE (NEGATIVE) 11/20/17 14:00 Acetaminophen < 10 ug/mL (10-30) L 11/20/17 15:47 Ur Barbiturates Screen NEGATIVE (NEGATIVE) 11/20/17 14:00 Ur Tricyclics Screen NEGATIVE (NEGATIVE) 11/20/17 14:00 Ur Phencyclidine Scrn NEGATIVE (NEGATIVE) 11/20/17 14:00 Ur Amphetamine Screen NEGATIVE (NEGATIVE) 11/20/17 14:00 U Methamphetamines Scrn NEGATIVE (NEGATIVE) 11/20/17 14:00 U Benzodiazepines Scrn NEGATIVE (NEGATIVE) 11/20/17 14:00 Urine Cocaine Screen NEGATIVE (NEGATIVE) 11/20/17 14:00 U Cannabinoids Screen NEGATIVE (NEGATIVE) 11/20/17 14:00 - DIAGNOSTIC IMAGING Diagnostic Imaging Results: Final report reviewed Diagnostic Imaging Results Comments: CT HEAD EXAM DATE: 11/20/2017 03:57 PM. CLINICAL HISTORY: Altered mental status. COMPARISON: None. TECHNIQUE: Multiaxial CT images were obtained from the foramen magnum to the vertex. Reformats: Coronal. IV contrast: None. In accordance with CT protocol optimization, one or more of the following dose reduction techniques were utilized for this exam: automated exposure control, adjustment of mA and/or KV based on patient size, or use of iterative reconstructive technique. FINDINGS: Parenchyma: No intraparenchymal hemorrhage. No evidence of mass, midline shift, or CT findings of acute infarction. Manzo-white differentiation is distinct. Diffuse chronic microangiopathic white matter changes. Extraaxial Spaces: Normal for age. No subdural or epidural collections. Ventricles: The ventricles and cortical sulci are enlarged, consistent with age- related tissue loss. Sinuses and orbits: Imaged paranasal sinuses, orbits, and mastoids show no significant abnormality. Bones: Unremarkable. Other: Calcifications of intracranial carotid and vertebral arteries. IMPRESSION: Generalized age-related cortical atrophic changes without evidence of acute intracranial abnormality. CHEST RADIOGRAPHY EXAM DATE: 11/20/2017 04:05 PM. CLINICAL HISTORY: Altered mental status. COMPARISON: 07/15/2016. TECHNIQUE: 2 views. FINDINGS: Lungs/Pleura: There is new mild blunting of the right costophrenic angle. Left lung appears unchanged. Mid and upper lung zones are clear. No pneumothorax. Mediastinum: There is mild cardiomegaly. Trachea is midline. Other: None. IMPRESSION: 1. New small right pleural effusion. 2. Otherwise unchanged. CT ANGIOGRAM NECK EXAM DATE: 11/20/2017 06:20 PM. CLINICAL HISTORY: Confusion and memory loss. COMPARISON: None. TECHNIQUE: Routine axial helical imaging was performed from the skull base through the aortic arch. IV Contrast: 80 mL Isovue 300. Reconstructions: Routine multiplanar 3D MIP reconstructions. Evaluation of arterial stenosis is based on a NASCET method of measurement. In accordance with CT protocol optimization, one or more of the following dose reduction techniques were utilized for this exam: automated exposure control, adjustment of mA and/or KV based on patient size, or use of iterative reconstructive technique. FINDINGS: Densely contrast opacified pulmonary arteries in the chest but arterial contrast opacification in the neck is quite dilute which significantly limits arterial evaluation. Small dependent pleural effusion on the left. Moderate dependent pleural effusion on the right. Chronic advanced multilevel degenerative cervical spinal spondylosis. Cervical levoscoliosis. There may be a 1.5 cm mildly expansile soft tissue density nodule of the right lobe of the thyroid gland. Mild to moderate atherosclerotic calcification at the top of the aortic arch. No evidence for flow- limiting stenosis at the great vessel origins. Moderate to severe focal luminal stenosis with prominent atherosclerotic calcification at the right subclavian artery origin. Right cervical carotid artery atherosclerotic disease with calcified plaque, especially prominent in the region of the cervical bifurcation. Multifocal right cervical carotid artery luminal stenosis is present but unlikely to be hemodynamically significant. Multifocal atherosclerotic disease with calcified and noncalcified plaque of the left cervical carotid artery, especially prominent at the cervical bifurcation. Multifocal luminal stenosis is present but does not appear to be flow-limiting. Both cervical vertebral arteries appear to be patent. Detailed evaluation is limited by dilute intraluminal contrast, beam-hardening streak artifact especially in the low neck and relatively small vessel size. Vertebral artery detailed evaluation in the low neck may be considered incomplete. IMPRESSION: 1. 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 2. The cervical vertebral arteries appear patent but evaluation is limited and may be considered incomplete in the low neck. 3. Potentially flow-limiting focal stenosis with prominent calcified plaque at the right subclavian artery origin. 4. Arterial evaluation in the neck is somewhat limited secondary to relatively dilute intra- arterial contrast. 5. Pleural effusions, right larger than left. 6. 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 7. Ultrasound could be used to more accurately define a suspected 1.5 cm right thyroid nodule. CT ANGIOGRAM HEAD. CT SCAN OF THE HEAD WITHOUT AND WITH CONTRAST. EXAM DATE: 11/20/2017 06:20 PM CLINICAL HISTORY: Confusion, memory loss acute. COMPARISON: None. TECHNIQUE: 1. CT Scan Head: Using a multidetector scanner, axial images were acquired from the foramen magnum to the skull vertex prior to and following contrast administration. 2. CT Angiogram: Using a multidetector scanner, high-resolution axial images were acquired from the skull base through vertex following rapid infusion of intravenous contrast. Reformats: Multiplanar MIP reformats were reconstructed. Nascet criteria used for stenosis measurement. IV Contrast: 80 mL Isovue 300. In accordance with CT protocol optimization, one or more of the following dose reduction techniques were utilized for this exam: automated exposure control, adjustment of mA and/or KV based on patient size, or use of iterative reconstructive technique. FINDINGS: No evidence for new or acute brain abnormality. No evidence for focal space- occupying brain mass. 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 Mild to moderate left greater than right vertebral artery stenosis where there is focal atherosclerotic calcified plaque. Prominent calcifications of the cavernous and paraclinoid segments of the internal carotid arteries. No proximal flow limiting stenosis, occlusion or filling defect of the anterior , middle or posterior cerebral arteries. No evidence for aneurysm of the [place]. Contrast opacification of the major dural venous sinuses is present as expected. Impression: 1. No evidence for aneurysm of the [place] or flow limiting stenosis or occlusion of the anterior, middle or posterior cerebral arteries. 2. Mild to moderate left greater than right intradural vertebral artery stenosis where there is calcified atherosclerotic plaque. 3. Prominent cavernous and paraclinoid ICA atherosclerotic calcifications. 4. No CT evidence for acute hemorrhage, THYROID ULTRASOUND EXAM DATE: 11/21/2017 01:59 PM. CLINICAL HISTORY: Thyroid nodule evaluation. COMPARISON: CT neck 11/20/2017. TECHNIQUE: Real time sonographic imaging of the thyroid was performed by the sheet hanger. Multiple contact center representative static images were saved for review. FINDINGS: THYROID GLAND: Right Lobe: 4.2 x 2.3 x 1.3 cm, volume 6.6 cc. Normal background echotexture. Right Lobe Nodules: 1. Shadowing structure measuring 16 x 14 x 14 mm abutting or arising from the upper pole of the right thyroid lobe, possibly vascular, versus calcified nodule not clearly visualized on the prior CT. 2. Lower pole 15 x 14 x 13 mm cystic nodule, which may correspond to the nodule identified by CT. Left Lobe: 3.4 x 2.1 x 1.0 cm, volume 3.7 cc. Normal background echotexture. Left Lobe Nodules: None. Isthmus: Not well-visualized. Isthmic Nodules: None. LYMPH NODES: No adenopathy demonstrated in the central or lateral compartment. OTHER: None. IMPRESSION: 1. Right lower pole cystic nodule measuring 15 mm may correspond to the nodule identified by CT. 2. There is a shadowing structure measuring 16mm abutting or arising from the upper pole of the right thyroid lobe, possibly vascular, versus calcified thyroid nodule not clearly visualized on the prior CT. - FOLLOW UP Follow Up: Patient is being discharged home with his daughter. He will need to follow-up with his primary care physician in regards to his diabetes and CHF management. The patient was given a prescription for aspirin for CVA prevention, metoprolol and lisinopril for systolic heart failure. The patient's mental status did not return completely to normal but with significantly improved and it was explained to the daughter that this may be the patient's new baseline. Patient will also need follow-up for his thyroid nodule. - TIME SPENT Time Spent in Discharge (Minutes): 45 (FAX TO PCP)
[2017-11-22 12:41] VITALS: BP 143/89
--- NOTE | 2017-11-22 12:43 | PROVIDER PROGRESS NOTE ---
Assessment/Plan - Problem List (1) Acute encephalopathy Assessment/Plan: Patients mental status has improved but he still has intermittent confusion. Infection was ruled out with UA, CXR and exam. He has had no fevers and WBC is normal. We attempted an MRI but patient was not able to tolerate it despite ativan After MRI patient is sedated and not safe to go home Patient will be switched to inpatient status as he will need one more midnight in the hospital His mentation has worsened through out the day (2) Troponin I above reference range Conclusion/Plan: Troponin was 0.18 on presentation and increased to 0.20 then down to 0.19. The patients echo is still pending No events on tele (3) Thyroid nodule Conclusion/Plan: Patient does have thyroid nodule seen on CT angios the neck TSH was normal Thyroid ultrasound pending (4) Diabetes Conclusion/Plan: The patient has a history of diabetes which puts him at risk for possible stroke or TIA. Patient's blood glucose was controlled on presentation The patient is on Lantus and metformin at home given his confusion the patient may be having some issues with blood glucose and could be having periods of hypoglycemia. A1C is 6.6 although this is good in someone this age the goal should be closer to 7 We will decrease lantus to 35 units and monitor BG SS insulin DM diet Qualifiers: Diabetes mellitus type: type 2 - Current Meds Current Meds: Current Medications Generic Name Dose Route Start Last Admin Trade Name Freq PRN Reason Stop Dose Admin Aspirin 325 mg 11/21/17 08:00 11/22/17 10:33 Olena PO 325 mg DAILYWM ZENON Administration Atorvastatin Calcium 80 mg 11/20/17 21:00 11/21/17 20:15 Lipitor PO 80 mg QPM ZENON Administration Famotidine 20 mg 11/21/17 09:00 11/22/17 10:33 Pepcid PO 20 mg DAILY ZENON Administration Haloperidol 2.5 mg 11/20/17 18:40 11/22/17 02:50 Haldol Inj IM 2.5 mg Q8HR PRN Administration Agitation Insulin Aspart 1 - 5 unit 11/20/17 17:00 11/22/17 10:51 Novolog SUBQ Not Given 0800,1200,1700,2100 ZENON Protocol Insulin Glargine 35 unit 11/21/17 12:40 11/22/17 10:56 Lantus Solostar SUBQ 35 unit DAILY ZENON Administration Polyethylene Glycol 17 gm 11/21/17 09:00 11/22/17 10:33 Miralax PO 17 gm DAILY ZENON Administration Sodium Chloride 10 ml 11/20/17 16:24 11/21/17 12:25 Normal Saline Flush 0.9% IVP 10 ml PRN PRN Administration NEEDED PER PROVIDER ORDERS Sodium Chloride 10 ml 11/20/17 22:00 11/22/17 06:18 Normal Saline Flush 0.9% IVP 10 ml Q8HR ZENON Administration - Lab Result Lab results reviewed: Yes Fish Bone Diagrams: 11/22/17 06:26 11/22/17 06:26 - EKG Results EKG Interpreted Independently: Yes - Diagnostic Imaging Results Diagnostic Imaging Results: Final report reviewed - Additional Planning Condition/Complexity: Guarded My Orders: My Active Orders 11/22/17 11:07 Discharge [RC] .ONCE Plan Discussed with:: Patient, Family Time Spent: 31-60 minutes Subjective - Subjective Patient Reports: Other (More alert but still confused in the morning. He was sedated after MRI. Very agitated during MRI.) Nursing Reports: Confused Objective Vital Signs: Vital Signs - 24 hr 11/21/17 11/22/17 11/22/17 21:00 00:15 04:05 Temperature 36.8 C 36.3 C L 36.7 C Heart Rate [ 52 L 69 82 Brachial] Respiratory 17 18 16 Rate Blood Pressure 115/54 L 125/62 149/98 H [Right Brachial artery] O2 Saturation 100 100 99 11/22/17 11/22/17 07:53 09:00 Temperature 36.2 C L Heart Rate [ 76 Brachial] Respiratory 16 Rate Blood Pressure 154/89 H [Right Brachial artery] O2 Saturation 100 Oxygen O2 Source Room air I&O (Last 24 Hrs): Intake and Output Totals x24h 11/20/17 11/21/17 11/22/17 23:59 23:59 23:59 Intake Total 300 Output Total 425 Balance 300 -425 General: Alert, Mild distress (Agitated) HEENT: Atraumatic, PERRLA, EOMI, Mucous membr. moist/pink Neck: Supple, No JVD, No thyromegaly, +2 carotid pulse wo bruit, No LAD Lymphatic: no adenopathy Neuro: Alert, Non Focal, CN 2-12 Grossly Intact, Other (Oriented x1) Cardiovascular: Regular rate, Normal S1, Normal S2, No murmurs Respiratory: Chest non-tender, No respiratory distress, Rales (Bases) Abdomen: Normal bowel sounds, Soft, No tenderness, No hepatospenomegaly Extremities: No clubbing, No cyanosis, No edema, Normal pulses Skin: No rashes, No breakdown - Results Results: Laboratory Results WBC 5.7 x10^3/uL (4.8-10.8) 11/22/17 06:26 RBC 4.99 10^6/uL (4.70-6.10) 11/22/17 06:26 Hgb 14.1 g/dL (14.0-18.0) 11/22/17 06:26 Hct 43.7 % (42.0-52.0) 11/22/17 06:26 MCV 87.7 fL (80.0-94.0) 11/22/17 06:26 MCH 28.3 pg (27.0-31.0) 11/22/17 06:26 MCHC 32.2 g/dL (32.0-36.0) 11/22/17 06:26 RDW 15.5 % (12.0-15.0) H 11/22/17 06:26 Plt Count 107 10^3/uL (130-450) L 11/22/17 06:26 MPV 10.0 fL (7.4-11.4) 11/22/17 06:26 Neut # 3.7 10^3/uL (1.5-6.6) 11/22/17 06:26 Lymph # 1.3 10^3/uL (1.5-3.5) L 11/22/17 06:26 [place] # 0.5 10^3/uL (0.0-1.0) 11/22/17 06:26 Eos # 0.2 10^3/uL (0.0-0.7) 11/22/17 06:26 Baso # 0.1 10^3/uL (0.0-0.1) 11/22/17 06:26 Absolute Nucleated RBC 0.00 x10^3/uL 11/22/17 06:26 Nucleated RBC % 0.0 /100WBC 11/22/17 06:26 PT 12.3 secs (9.9-12.6) 11/21/17 03:11 INR 1.1 (0.8-1.2) 11/21/17 03:11 Sodium 141 mmol/L (135-145) 11/22/17 06:26 Potassium 4.3 mmol/L (3.5-5.0) 11/22/17 06:26 Chloride 111 mmol/L (101-111) 11/22/17 06:26 Carbon Dioxide 24 mmol/L (21-32) 11/22/17 06:26 Anion Gap 6.0 (6-13) 11/22/17 06:26 BUN 23 mg/dL (6-20) H 11/22/17 06:26 Creatinine 1.3 mg/dL (0.6-1.2) H 11/22/17 06:26 Estimated GFR (MDRD) 52 (>89) L 11/22/17 06:26 Glucose 111 mg/dL (70-100) H 11/22/17 06:26 POC Whole Bld Glucose 173 mg/dL (70 - 100) H 11/22/17 11:28 Glycated Hemoglobin 6.6 % (4.6-6.2) H 11/21/17 03:11 Estim Average Glucose 143 (70-100) H 11/21/17 03:11 Calcium 8.5 mg/dL (8.5-10.3) 11/22/17 06:26 Total Bilirubin 0.9 mg/dL (0.2-1.0) 11/22/17 06:26 AST 43 IU/L (10-42) H 11/22/17 06:26 ALT 44 IU/L (10-60) 11/22/17 06:26 Alkaline Phosphatase 69 IU/L (42-121) 11/22/17 06:26 Ammonia 11.0 umol/L (7-35) 11/21/17 08:55 Troponin I 0.19 ng/mL (<0.49) 11/21/17 03:11 B-Natriuretic Peptide 1398 pg/mL (5-100) H 11/21/17 03:11 Total Protein 5.5 g/dL (6.7-8.2) L 11/22/17 06:26 Albumin 3.3 g/dL (3.2-5.5) 11/22/17 06:26 Globulin 2.2 g/dL (2.1-4.2) 11/22/17 06:26 Albumin/Globulin Ratio 1.5 (1.0-2.2) 11/22/17 06:26 Triglycerides 57 mg/dL (-149) 11/21/17 03:11 Cholesterol 108 mg/dL (-199) 11/21/17 03:11 LDL Cholesterol, Calc 62 mg/dL (-129) 11/21/17 03:11 VLDL Cholesterol 11 mg/dL 11/21/17 03:11 HDL Cholesterol 35 mg/dL (60-) L 11/21/17 03:11 LDL/HDL Ratio 1.8 (<3.6) 11/21/17 03:11 Cholesterol/HDL Ratio 3.1 (<5.0) 11/21/17 03:11 Lipase 33 U/L (22-51) 11/20/17 15:47 Vitamin B12 1379 pg/mL (180-914) H 11/20/17 15:47 Folate 30.00 ng/mL (5.90 - >24.8) 11/20/17 15:47 TSH 4.33 uIU/mL (0.34-5.60) 11/20/17 15:47 Urine Color YELLOW 11/20/17 14:00 Urine Clarity CLEAR (CLEAR) 11/20/17 14:00 Urine pH 5.5 PH (5.0-7.5) 11/20/17 14:00 Ur Specific [place] >=1.030 (1.002-1.030) H 11/20/17 14:00 Urine Protein TRACE mg/dL (NEGATIVE) 11/20/17 14:00 Urine Glucose (UA) NEGATIVE mg/dL (NEGATIVE) 11/20/17 14:00 Urine Ketones NEGATIVE mg/dL (NEGATIVE) 11/20/17 14:00 Urine Occult Blood TRACE-INTA (NEGATIVE) 11/20/17 14:00 Urine Nitrite NEGATIVE (NEGATIVE) 11/20/17 14:00 Urine Bilirubin NEGATIVE (NEGATIVE) 11/20/17 14:00 Urine Urobilinogen 0.2 (NORMAL) E.U./dL (NORMAL) 11/20/17 14:00 Ur Leukocyte Esterase NEGATIVE (NEGATIVE) 11/20/17 14:00 Ur Microscopic Review NOT INDICATED 11/20/17 14:00 Urine Culture Comments NOT INDICATED 11/20/17 14:00 Salicylates < 6.0 mg/dL 11/20/17 15:47 Urine Opiates Screen NEGATIVE (NEGATIVE) 11/20/17 14:00 Ur Oxycodone Screen NEGATIVE (NEGATIVE) 11/20/17 14:00 Urine Methadone Screen NEGATIVE (NEGATIVE) 11/20/17 14:00 Ur Propoxyphene Screen NEGATIVE (NEGATIVE) 11/20/17 14:00 Acetaminophen < 10 ug/mL (10-30) L 11/20/17 15:47 Ur Barbiturates Screen NEGATIVE (NEGATIVE) 11/20/17 14:00 Ur Tricyclics Screen NEGATIVE (NEGATIVE) 11/20/17 14:00 Ur Phencyclidine Scrn NEGATIVE (NEGATIVE) 11/20/17 14:00 Ur Amphetamine Screen NEGATIVE (NEGATIVE) 11/20/17 14:00 U Methamphetamines Scrn NEGATIVE (NEGATIVE) 11/20/17 14:00 U Benzodiazepines Scrn NEGATIVE (NEGATIVE) 11/20/17 14:00 Urine Cocaine Screen NEGATIVE (NEGATIVE) 11/20/17 14:00 U Cannabinoids Screen NEGATIVE (NEGATIVE) 11/20/17 14:00 - Procedures Procedures: Procedures INJECT CA CHEMOTHER NEC (05/29/14) OTHER INSTILLATION (05/29/14) REPLACE R HIP JT W METAL ON POLY, UNCEMENT, OPEN (03/03/16) TU DESTRUC BLADD LES NEC (05/29/14)
== END 2017-11-22 13:25 | disposition home or self-care (01) | DRG 71 ==
LOC: ED 13:39 → OBS 16:25 → OBSVTOIN 11-21 19:19 → MS2 11-21 20:41
PROVIDERS: ADMIT Internal Medicine; ATTEND Internal Medicine
DX: G93.40 Encephalopathy, unspecified (principal); R79.89 Other specified abnormal findings of blood chemistry; I50.20 Unspecified systolic (congestive) heart failure; I10 Essential (primary) hypertension; E11.51 Type 2 diabetes mellitus with diabetic peripheral angiopathy without gangrene; E11.42 Type 2 diabetes mellitus with diabetic polyneuropathy; N40.0 Benign prostatic hyperplasia without lower urinary tract symptoms; Z87.891 Personal history of nicotine dependence; I47.2 Ventricular tachycardia; Z66 Do not resuscitate; E04.1 Nontoxic single thyroid nodule; E11.9 Type 2 diabetes mellitus without complications; Z79.4 Long term (current) use of insulin; Z79.84 Long term (current) use of oral hypoglycemic drugs
CPT/HCPCS: 36415; 70450; 70496; 70498; 71046; 76536; 80053; 80061; 80306; 80307; 80329; 81001; 81003; 82140; 82607; 82746; 83036; 83690; 83880; 84443; 84484; 85025; 85610; 87086; 93005; 93306; 96372; 96374; 96376; 99284; 99285

== ENCOUNTER 2017-11-27 16:46 | Emergency (ER) | payer MEDICARE, OTHER ==
--- NOTE | 2017-11-27 17:39 | ED Physician Documentation ---
History of Present Illness - Stated complaint Stated Complaint: CONFUSION/UNABLE TO WALK - Chief complaint Chief Complaint: Neuro - History obtained from History obtained from: Patient, Family - History of Present Illness Timing: Yesterday Pain level max: 0 Pain level now: 0 - Additonal information Additional information: Patient tripped and fell striking his head yesterday. Today is more confused than usual and having more difficulty walking. Brought in for evaluation. No vomiting. No loss of consciousness. Caregiver states that the patient was started on ativan at night 2 nights ago, 2mg PO qHS. Last night received a dose at 9pm and another 2mg at 0200. This am hard to wake up and slurred speech. Trouble with balance today. Now acting back to normal. Review of Systems Ten Systems: 10 systems reviewed and negative Constitutional: denies: Fever, Chills Ears: denies: Ear pain Nose: denies: Rhinorrhea / runny nose, Congestion Respiratory: denies: Cough GI: denies: Nausea, Vomiting, Diarrhea Skin: denies: Rash Musculoskeletal: denies: Neck pain, Back pain Neurologic: denies: Headache PD PAST MEDICAL HISTORY - Past Medical History Cardiovascular: Hypertension, Peripheral Vascular Disease Neuro: Peripheral neuropathy, Other Endocrine/Autoimmune: Type 2 diabetes GI: Ulcers : Benign prostate hypertrophy Musculoskeletal: Osteoarthritis - Past Surgical History Past Surgical History: Yes General: Cholecystectomy, Appendectomy Ortho: Carpal Tunnel surgery - Present Medications Home Medications: Ambulatory Orders Medication Instructions Recorded Confirmed Insulin NPH Hum/Reg Insulin Hm 25 unit SUBQ 0730 05/26/14 11/27/17 [Novolin 70-30 100 Unit/ml Vial] metFORMIN [Glucophage] 500 mg PO BIDWM 03/04/16 11/27/17 Insulin NPH Hum/Reg Insulin Hm 24 units SUBQ 1630 11/20/17 11/27/17 [Humulin 70-30 Vial] Aspirin [Adult Low Dose Aspirin EC] 81 mg PO DAILY #30 tablet. 11/22/17 Aspirin [Aspirin EC] 81 mg PO DAILY #30 tablet. 11/22/17 11/27/17 Insulin Glargine [Lantus Solostar] 35 unit SQ QPM #5 pen 11/22/17 11/27/17 Insulin Glargine [Lantus Solostar] 35 unit TD QPM #1 pen 11/22/17 11/27/17 Lisinopril 2.5 mg PO DAILY #30 tablet 11/22/17 11/27/17 Lisinopril 2.5 mg PO DAILY #30 tablet 11/22/17 11/27/17 Metoprolol Tartrate 25 mg PO BID #60 tablet 11/22/17 11/27/17 Metoprolol Tartrate [Lopressor] 25 mg PO BID #60 tablet 11/22/17 11/27/17 LORazepam [Lorazepam] BID 11/27/17 - Allergies Allergies/Adverse Reactions: Allergies Allergy/AdvReac Type Severity Reaction Status Date / Time No Known Drug Allergies Allergy Verified 11/20/17 13:50 - Social History Does the pt smoke?: No Smoking Status: Never smoker Does the pt drink ETOH?: No Does the pt have substance abuse?: No - Immunizations Immunizations are current?: Yes - POLST POLST Status: DNR PD ED PE NORMAL - Vitals Vital signs reviewed: Yes - General General: Alert and oriented X 3, No acute distress, Well developed/nourished - HEENT HEENT: PERRL, Ears normal, Moist mucous membranes - Neck Neck: Supple, no meningeal sign - Cardiac Cardiac: RRR, Strong equal pulses - Respiratory Respiratory: No respiratory distress, Clear bilaterally - Abdomen Abdomen: Soft, Non tender, Non distended - Back Back: No spinal TTP - Derm Derm: Warm and dry - Extremities Extremities: No edema - Neuro Neuro: Alert and oriented X 3, technical intern 2-12 intact, No motor deficit, No sensory deficit, Normal speech Eye Opening: Spontaneous Motor: Obeys Commands Verbal: Oriented GCS Score: 15 - Psych Psych: Normal mood, Normal affect - Free text exam Free text exam: NIHSS 0 Results - Vitals Vitals: Vital Signs - 24 hr 11/27/17 11/27/17 11/27/17 17:05 19:25 21:16 Temperature 36.0 C L Heart Rate 85 59 L 68 Respiratory 16 18 21 Rate Blood Pressure 125/95 H 132/79 H 139/67 H O2 Saturation 94 96 94 Oxygen O2 Source Room air - Labs Labs: Laboratory Tests 11/27/17 11/27/17 11/27/17 18:05 18:14 18:14 WBC 9.0 RBC 5.96 Hgb 16.4 Hct 51.5 MCV 86.4 MCH 27.6 MCHC 31.9 L RDW 16.0 H Plt Count 150 MPV 10.1 Neut # 6.6 Lymph # 1.3 L [place] # 0.8 Eos # 0.3 Baso # 0.1 Absolute Nucleated RBC 0.00 Nucleated RBC % 0.0 Sodium 137 Potassium 4.8 Chloride 102 Carbon Dioxide 23 Anion Gap 12.0 BUN 21 H Creatinine 1.1 Estimated GFR (MDRD) 63 L Glucose 131 H POC Whole Bld Glucose 118 H Calcium 8.9 Total Bilirubin 0.7 AST 22 ALT 26 Alkaline Phosphatase 90 Total Protein 6.7 Albumin 3.7 Globulin 3.0 Albumin/Globulin Ratio 1.2 Lipase 37 Urine Color Urine Clarity Urine pH Ur Specific [place] Urine Protein Urine Glucose (UA) Urine Ketones Urine Occult Blood Urine Nitrite Urine Bilirubin Urine Urobilinogen Ur Leukocyte Esterase Urine RBC Urine WBC Ur Squamous Epith Cells Urine Bacteria Ur Microscopic Review Urine Culture Comments 11/27/17 20:40 WBC RBC Hgb Hct MCV MCH MCHC RDW Plt Count MPV Neut # Lymph # [place] # Eos # Baso # Absolute Nucleated RBC Nucleated RBC % Sodium Potassium Chloride Carbon Dioxide Anion Gap BUN Creatinine Estimated GFR (MDRD) Glucose POC Whole Bld Glucose Calcium Total Bilirubin AST ALT Alkaline Phosphatase Total Protein Albumin Globulin Albumin/Globulin Ratio Lipase Urine Color YELLOW Urine Clarity HAZY Urine pH 6.0 Ur Specific [place] 1.020 Urine Protein NEGATIVE Urine Glucose (UA) NEGATIVE Urine Ketones NEGATIVE Urine Occult Blood LARGE H Urine Nitrite NEGATIVE Urine Bilirubin NEGATIVE Urine Urobilinogen 0.2 (NORMAL) Ur Leukocyte Esterase NEGATIVE Urine RBC TNTC H Urine WBC 4-5 Ur Squamous Epith Cells FEW Squamous Urine Bacteria Rare Ur Microscopic Review INDICATED Urine Culture Comments NOT INDICATED - Rads (name of study) head CT Radiology: Prelim report reviewed, EMP read contemporaneously, See rad report ( No acute intracranial abnormality nor bleed. ) PD MEDICAL DECISION MAKING - ED course Complexity details: reviewed results, re-evaluated patient, considered differential, d/w patient, d/w family (Caregiver) ED course: Patient is an 87-year-old male who presents to the emergency department with what appears to be an unintentional Ativan overdose. As the Ativan is cleared out of his symptoms, the slurred speech and off balance gait have resolved. He is ambulating quite well. No evidence of stroke, tumor, mass, bleed. No acute electrolyte abnormalities. No evidence of acute infection. Patient and caregiver counseled regarding signs and symptoms for which I believe and urgent re-evaluation would be necessary. Patient and caregiver with good understanding of and agreement to plan and is comfortable going home at this time This document was made in part using voice recognition software. While efforts are made to proofread this document, sound alike and grammatical errors may occur. Departure - Departure Disposition: 01 Home, Self Care Clinical Impression: Accidental overdose Qualifiers: Encounter type: initial encounter Qualified Code(s): T50.901A - Poisoning by unspecified drugs, medicaments and biological substances, accidental ( unintentional), initial encounter Condition: Good Instructions: ED Overdose Accidental Follow-Up: Daniel Hawthorne MD [Primary Care Provider] - Within 1 week Comments: do not exceed 2 mg of ativan in any 12 hour period. Return if Twan worsens. Discharge Date/Time: 11/27/17 21:30
[2017-11-27 18:22] LABS: BASOPHILS # (AUTO) 0.1 10^3/uL (0.0-0.1); BASOPHILS % (AUTO) 0.7 %; EOSINOPHILS # (AUTO) 0.3 10^3/uL (0.0-0.7); EOSINOPHILS % (AUTO) 2.8 %; HGB - HEMOGLOBIN 16.4 g/dL (14.0-18.0); LYMPHOCYTES # (AUTO) 1.3 10^3/uL (1.5-3.5); LYMPHOCYTES % (AUTO) 14.9 %; MEAN CORPUSCULAR HEMOGLOBIN 27.6 pg (27.0-31.0); MEAN CORPUSCULAR HGB CONC 31.9 g/dL (32.0-36.0); MEAN CORPUSCULAR VOLUME 86.4 fL (80.0-94.0); MEAN PLATELET VOLUME 10.1 fL (7.4-11.4); MONOCYTES # (AUTO) 0.8 10^3/uL (0.0-1.0); MONOCYTES % (AUTO) 8.5 %; NEUTROPHILS # (AUTO) 6.6 10^3/uL (1.5-6.6); NEUTROPHILS % (AUTO) 73.1 %; PLT - PLATELET COUNT 150 10^3/uL (130-450); RED BLOOD COUNT 5.96 10^6/uL (4.70-6.10)
--- NOTE | 2017-11-27 18:22 | CT Preliminary Report ---
Exam: CT HEAD W/O IMPRESSION: No acute intracranial abnormality nor bleed. [facility] SITE ID: [id number]
--- NOTE | 2017-11-27 18:26 | CT Report ---
EXAM: CT HEAD EXAM DATE: 11/27/2017 05:42 PM. CLINICAL HISTORY: Several falls, head injury, altered loss of consciousness. COMPARISON: 11/20/2017. TECHNIQUE: Multiaxial CT images were obtained from the foramen magnum to the vertex. Reformats: Coron al. IV contrast: None. In accordance with CT protocol optimization, one or more of the following dose reduction techniques w ere utilized for this exam: automated exposure control, adjustment of mA and/or KV based on patient s ize, or use of iterative reconstructive technique. 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 No intraparenchymal hemorrhage. No evidence of mass, midline shift, or CT findings of acute infarctio n. Manzo-white differentiation is distinct. Diffuse chronic microangiopathic white matter changes are evident. Extraaxial Spaces: Normal for age. No subdural or epidural collections identified. Ventricles: The ventricles and cortical sulci are enlarged, consistent with age-related tissue loss. Sinuses and orbits: Imaged paranasal sinuses, orbits, and mastoids show no significant abnormality. Bones: No evidence of fracture or calvarial defect. Other: None. IMPRESSION: No acute intracranial abnormality nor bleed. [facility] Referring Provider Line: [phone] SITE ID: [id number]
[2017-11-27 18:35] LABS: ALBUMIN 3.7 g/dL (3.2-5.5); ALBUMIN/GLOBULIN RATIO 1.2 (1.0-2.2); BILIRUBIN,TOTAL 0.7 mg/dL (0.2-1.0); CALCIUM 8.9 mg/dL (8.5-10.3); CREATININE 1.1 mg/dL (0.6-1.2); TOTAL PROTEIN 6.7 g/dL (6.7-8.2)
[2017-11-27 20:55] LABS: BILIRUBIN,URINE NEGATIVE (NEGATIVE); GLUCOSE, URINE (UA) NEGATIVE (NEGATIVE); KETONES,URINE (UA) NEGATIVE (NEGATIVE); LEUKOCYTE ESTERASE, URINE NEGATIVE (NEGATIVE); NITRITE,URINE NEGATIVE (NEGATIVE); OCCULT BLOOD,URINE LARGE (NEGATIVE); PROTEIN,URINE NEGATIVE (NEGATIVE); UROBILINOGEN,URINE 0.2 (NORMAL) E.U./dL (NORMAL)
[2017-11-27 20:58] LABS: CLARITY,URINE HAZY (CLEAR)
[2017-11-27 21:10] LABS: BACTERIA,URINE Rare /HPF (None Seen); RBC,URINE TNTC /HPF (0-5); SQUAMOUS EPITHELIAL CELL,UR FEW Squamous (<= Few)
[2017-11-27 21:16] VITALS: BP 139/67
== END 2017-11-27 21:30 | disposition home or self-care (01) ==
LOC: ED 16:46
DX: T42.4X1A Poisoning by benzodiazepines, accidental (unintentional), initial encounter (principal); E11.51 Type 2 diabetes mellitus with diabetic peripheral angiopathy without gangrene; I10 Essential (primary) hypertension; Z79.4 Long term (current) use of insulin; Z91.81 History of falling
CPT/HCPCS: 36415; 51701; 70450; 80053; 81001; 81003; 83690; 85025; 87086; 99284

== ENCOUNTER 2017-11-30 08:25 | Outpatient (CLI) | payer MEDICARE, OTHER | END 2017-11-30 08:26 | disposition critical access hospital (66) | LOC: EMS 08:25 | PROVIDERS: ATTEND Surgery | DX: R46.4 Slowness and poor responsiveness (principal); R53.1 Weakness | CPT/HCPCS: A0425; A0429 ==

== ENCOUNTER 2017-11-30 08:59 | Inpatient (IN) | payer MEDICARE, OTHER ==
--- NOTE | 2017-11-30 09:17 | ED Physician Documentation ---
History of Present Illness - Stated complaint Stated Complaint: AMS - Chief complaint Chief Complaint: Neuro - Additonal information Additional information: hx from EMS and EMR 87 male Pmhx HTN DM bladder cancer per EMS who got hx from family and their prior cals to the house he has had decreasing mental status for 1.5 weeks, seen in ER X 2 and admitted the first time, dced the second time, lives at home with caregivers and family, is normally conversant though confused, normally ambulatory with a walker though fall sabiha, fell out of bed last night, has had increasing AMS and L sided weakness and slurred speech since last night per EMS pt was admitted for AMS approx 10 days ago and had an extensive workup including CTH CTA head and neck, could not tolerate MRI even with sedation, and an echo which showed global hypokinesis and EF 30-35% and no thrombus EMS asked for a POLST but family told EMS it was already at the hospital, no POLST scanned into EMR but hospitalist note from 10 days ago noted full code no blood thinners pt severely confused and also with slurred speec/dysarthria so cannot contribute to hx Review of Systems Unable to obtain: Confused PD PAST MEDICAL HISTORY - Past Medical History Cardiovascular: Hypertension, Peripheral Vascular Disease Neuro: Peripheral neuropathy, Other Endocrine/Autoimmune: Type 2 diabetes GI: Ulcers : Benign prostate hypertrophy Musculoskeletal: Osteoarthritis - Past Surgical History Past Surgical History: Yes General: Cholecystectomy, Appendectomy Ortho: Carpal Tunnel surgery - Present Medications Home Medications: Ambulatory Orders Medication Instructions Recorded Confirmed Insulin NPH Hum/Reg Insulin Hm 25 unit SUBQ 0730 05/26/14 11/30/17 [Novolin 70-30 100 Unit/ml Vial] metFORMIN [Glucophage] 500 mg PO BIDWM 03/04/16 11/30/17 Insulin NPH Hum/Reg Insulin Hm 24 units SUBQ 1630 11/20/17 11/30/17 [Humulin 70-30 Vial] Aspirin [Aspirin EC] 81 mg PO DAILY #30 tablet. 11/22/17 11/30/17 Insulin Glargine [Lantus Solostar] 35 unit SQ QPM #5 pen 11/22/17 11/30/17 Lisinopril 2.5 mg PO DAILY #30 tablet 11/22/17 11/30/17 Metoprolol Tartrate 25 mg PO BID #60 tablet 11/22/17 11/30/17 - Allergies Allergies/Adverse Reactions: Allergies Allergy/AdvReac Type Severity Reaction Status Date / Time No Known Drug Allergies Allergy Verified 11/30/17 09:05 - Social History Does the pt smoke?: No Smoking Status: Never smoker Does the pt drink ETOH?: No Does the pt have substance abuse?: No - Immunizations Immunizations are current?: Yes - POLST POLST Status: DNR PD ED PE NORMAL - Vitals Vital signs reviewed: Yes (normal) - General General: No: Alert and oriented X 3 (X 1) - HEENT HEENT: PERRL (3). No: Atraumatic (aged bruising and abrasion across), EOMI ( cannot assess) - Neck Neck: No bony TTP (but AMS and fell and cant clear so collared and imaged) - Cardiac Cardiac: RRR - Respiratory Respiratory: No respiratory distress, Clear bilaterally - Abdomen Abdomen: Soft, Non tender (as best I can tell) - Derm Derm: Normal color - Neuro Neuro: No: Alert and oriented X 3 (X 1), outside parts sales 2-12 intact (L facial droop), No motor deficit (left facial droop, does not withdraw left arm or leg from discomfort), No sensory deficit (cannot determine), Normal speech (slurred) Eye Opening: To Voice Motor: Withdraws to Pain Verbal: Confused GCS Score: 11 Results - Vitals Vitals: Vital Signs - 24 hr 11/30/17 11/30/17 11/30/17 09:01 10:23 10:30 Temperature 36.5 C Heart Rate 86 80 84 Respiratory 20 24 20 Rate Blood Pressure 137/87 H 116/65 108/61 O2 Saturation 94 97 96 11/30/17 11:00 Temperature Heart Rate 79 Respiratory 22 Rate Blood Pressure 116/66 O2 Saturation 95 Oxygen O2 Source Room air - EKG (time done) 0915 Rate: Rate (enter#) (85) Rhythm: NSR [place]: Normal QRS: Poor R wave progression, Low voltage Ischemia: Non specific changes - Labs Labs: Laboratory Tests 11/30/17 11/30/17 11/30/17 09:04 09:44 09:44 WBC 12.8 H RBC 5.42 Hgb 15.3 Hct 46.0 MCV 84.9 MCH 28.2 MCHC 33.2 RDW 15.5 H Plt Count 148 MPV 10.1 Neut # 10.2 H Lymph # 1.3 L [place] # 1.2 H Eos # 0.1 Baso # 0.1 Absolute Nucleated RBC 0.01 Nucleated RBC % 0.1 Sodium 138 Potassium 4.6 Chloride 104 Carbon Dioxide 19 L Anion Gap 15.0 H BUN 21 H Creatinine 1.0 Estimated GFR (MDRD) 71 L Glucose 126 H POC Whole Bld Glucose 113 H Calcium 8.5 Total Bilirubin 1.6 H AST 54 H ALT 30 Alkaline Phosphatase 82 Troponin I Total Protein 6.4 L Albumin 3.4 Globulin 3.0 Albumin/Globulin Ratio 1.1 Lipase 25 Urine Color Urine Clarity Urine pH Ur Specific [place] Urine Protein Urine Glucose (UA) Urine Ketones Urine Occult Blood Urine Nitrite Urine Bilirubin Urine Urobilinogen Ur Leukocyte Esterase Urine RBC Urine WBC Ur Squamous Epith Cells Urine Bacteria Ur Microscopic Review Urine Culture Comments 11/30/17 11/30/17 09:44 10:48 WBC RBC Hgb Hct MCV MCH MCHC RDW Plt Count MPV Neut # Lymph # [place] # Eos # Baso # Absolute Nucleated RBC Nucleated RBC % Sodium Potassium Chloride Carbon Dioxide Anion Gap BUN Creatinine Estimated GFR (MDRD) Glucose POC Whole Bld Glucose Calcium Total Bilirubin AST ALT Alkaline Phosphatase Troponin I 0.10 Total Protein Albumin Globulin Albumin/Globulin Ratio Lipase Urine Color YELLOW Urine Clarity HAZY Urine pH 5.5 Ur Specific [place] >=1.030 H Urine Protein TRACE Urine Glucose (UA) NEGATIVE Urine Ketones 15 H Urine Occult Blood MODERATE H Urine Nitrite NEGATIVE Urine Bilirubin NEGATIVE Urine Urobilinogen 0.2 (NORMAL) Ur Leukocyte Esterase NEGATIVE Urine RBC 11-25 H Urine WBC 0-3 Ur Squamous Epith Cells NONE SEEN Urine Bacteria Moderate H Ur Microscopic Review INDICATED Urine Culture Comments INDICATED - Rads (name of study) CTH Radiology: See rad report (no acute process) CTCS Radiology: See rad report (no acute fx, thyroid nodules (not new)) CXR Radiology: See rad report (no acute) PD MEDICAL DECISION MAKING - ED course ED course: L sided weakness and slurred speech onset last night sx very c/w CVA CTH neg recent echo = no thrombus recent CTA neck and brain neg not a TPA candidate will try and MRI - will need sedation also elev WBC so got CXR (neg) cath ruine - considered RUQ sono given elev bili but pt has RUQ scar and dop confirms prior jacklyn so cancelled that study given severe AMS and now hemiparesis c/w acute CVA do not think pt can safely be dced to home environment - will need admit also UTI on UA - hospitalist ordered levaquin Departure - Departure Disposition: 66 [facility] DC/Xfer Clinical Impression: UTI (urinary tract infection) Cerebrovascular accident (CVA) Qualifiers: CVA mechanism: unspecified Qualified Code(s): I63.9 - Cerebral infarction, unspecified Discharge Date/Time: 11/30/17 12:12
--- NOTE | 2017-11-30 09:52 | XRAY Report ---
EXAM: CHEST RADIOGRAPHY EXAM DATE: 11/30/2017 09:42 AM. CLINICAL HISTORY: Ams. COMPARISON: Frontal chest: 11/20/2017. TECHNIQUE: 1 view. FINDINGS: Lungs/Pleura: No focal opacities evident. No pleural effusion. No pneumothorax. Mediastinum: Stable mild cardiomegaly. IMPRESSION: No evidence of acute thoracic process [facility] Referring Provider Line: [phone] SITE ID: [id number]
[2017-11-30 09:59] LABS: BASOPHILS # (AUTO) 0.1 10^3/uL (0.0-0.1); BASOPHILS % (AUTO) 0.6 %; EOSINOPHILS # (AUTO) 0.1 10^3/uL (0.0-0.7); EOSINOPHILS % (AUTO) 0.4 %; HGB - HEMOGLOBIN 15.3 g/dL (14.0-18.0); LYMPHOCYTES # (AUTO) 1.3 10^3/uL (1.5-3.5); LYMPHOCYTES % (AUTO) 9.9 %; MEAN CORPUSCULAR HEMOGLOBIN 28.2 pg (27.0-31.0); MEAN CORPUSCULAR HGB CONC 33.2 g/dL (32.0-36.0); MEAN CORPUSCULAR VOLUME 84.9 fL (80.0-94.0); MEAN PLATELET VOLUME 10.1 fL (7.4-11.4); MONOCYTES # (AUTO) 1.2 10^3/uL (0.0-1.0); MONOCYTES % (AUTO) 9.3 %; NEUTROPHILS # (AUTO) 10.2 10^3/uL (1.5-6.6); NEUTROPHILS % (AUTO) 79.8 %; PLT - PLATELET COUNT 148 10^3/uL (130-450); RED BLOOD COUNT 5.42 10^6/uL (4.70-6.10); RED CELL DISTRIBUTION WIDTH 15.5 % (12.0-15.0); WHITE BLOOD COUNT 12.8 x10^3/uL (4.8-10.8)
--- NOTE | 2017-11-30 10:02 | CT Report ---
EXAM: CT HEAD EXAM DATE: 11/30/2017 09:36 AM. CLINICAL HISTORY: Fall HI AMS L weakness. COMPARISON: None. TECHNIQUE: Multiaxial CT images were obtained from the foramen magnum to the vertex. Reformats: Coron al. IV contrast: None. In accordance with CT protocol optimization, one or more of the following dose reduction techniques w ere utilized for this exam: automated exposure control, adjustment of mA and/or KV based on patient s ize, or use of iterative reconstructive technique. FINDINGS: Parenchyma: No intraparenchymal hemorrhage. No evidence of mass, midline shift, or CT findings of acu te infarction. Manzo-white differentiation is distinct. There are periventricular and deep white matte r low attenuating foci, consistent with chronic microvascular angiopathic changes. Small foci of right occipital and left cerebellar encephalomalacia are stable findings. Extraaxial Spaces: Normal for age. No subdural or epidural collections identified. Ventricles: Normal in size and position. Sinuses and Orbits: Imaged paranasal sinuses, orbits, and mastoids show no significant abnormality ap art from postsurgical changes of the orbits. Bones: No evidence of fracture or calvarial defect. IMPRESSION: No evidence of acute intracranial process [facility] Referring Provider Line: [phone] SITE ID: [id number]
--- NOTE | 2017-11-30 10:02 | CT Preliminary Report ---
Exam: CT HEAD W/O IMPRESSION: No evidence of acute intracranial process [facility] SITE ID: [id number]
--- NOTE | 2017-11-30 10:11 | CT Report ---
EXAM: CT CERVICAL SPINE WITHOUT CONTRAST DATE: 11/30/2017 09:36 AM. HISTORY: Fall HI AMS. COMPARISONS: Neck CT 11/20/2017. TECHNIQUE: Thin-section axial images were acquired of the cervical spine without contrast. Post-proce ssing: Coronal and sagittal reformats. Other: None. In accordance with CT protocol optimization, one or more of the following dose reduction techniques w ere utilized for this exam: automated exposure control, adjustment of mA and/or KV based on patient s ize, or use of iterative reconstructive technique. FINDINGS: Alignment: No scoliosis or spondylolisthesis. Bones: No fracture or bone lesion. Interspace Levels/Facets: C1-C2: Osteophytes cause moderate to severe narrowing of the left bony neural foramen. C2-C3: Unremarkable. C3-C4: There is moderate disk space narrowing. Osteophytes narrow the bony neural foramina, mild on t he right and moderate on the left. C4-C5: Osteophytes cause moderate narrowing of the bony neural foramina. C5-C6: There is severe disk space narrowing. Osteophytes cause mild narrowing of the bony neural fora rolly. C6-C7: There is severe disk space narrowing. C7-T1: There is moderate disk space narrowing. Osteophytes cause narrowing of the bony neural foramin a, moderate to severe on the right and mild to moderate on the left. Musculature: Normal. No fatty atrophy. Other: The paravertebral and prevertebral soft tissues are unremarkable. The lung apices are clear. There is a nodular right thyroid. IMPRESSION: Moderate to severe cervical spondylosis. No evidence of acute fracture. Nodular thyroid may be better evaluated with ultrasound. [facility] Referring Provider Line: [phone] SITE ID: [id number]
[2017-11-30 10:24] LABS: ALBUMIN 3.4 g/dL (3.2-5.5); ALBUMIN/GLOBULIN RATIO 1.1 (1.0-2.2); BILIRUBIN,TOTAL 1.6 mg/dL (0.2-1.0); CALCIUM 8.5 mg/dL (8.5-10.3); TOTAL PROTEIN 6.4 g/dL (6.7-8.2)
[2017-11-30 11:08] LABS: BILIRUBIN,URINE NEGATIVE (NEGATIVE); GLUCOSE, URINE (UA) NEGATIVE (NEGATIVE); KETONES,URINE (UA) 15 mg/dL (NEGATIVE); LEUKOCYTE ESTERASE, URINE NEGATIVE (NEGATIVE); NITRITE,URINE NEGATIVE (NEGATIVE); OCCULT BLOOD,URINE MODERATE (NEGATIVE); PH,URINE 5.5 PH (5.0-7.5); PROTEIN,URINE TRACE mg/dL (NEGATIVE); UROBILINOGEN,URINE 0.2 (NORMAL) E.U./dL (NORMAL)
[2017-11-30 11:10] LABS: CLARITY,URINE HAZY (CLEAR)
[2017-11-30 11:16] LABS: BACTERIA,URINE Moderate /HPF (None Seen); SQUAMOUS EPITHELIAL CELL,UR NONE SEEN (<= Few)
[2017-11-30] MEDS ORDERED: SODIUM CHLORIDE FLUSH 0.9% 10 ML SYRINGE IVP PRN (11:19)
[2017-11-30] MEDS ORDERED: LORazepam 2 MG/ML VIAL IVP PRN (14:55)
[2017-11-30] MEDS: SODIUM CHLORIDE FLUSH 0.9% 10 ML SYRINGE IVP SCH ×2 (15:01→16:39)
--- NOTE | 2017-11-30 15:56 | HISTORY & PHYSICAL EXAMINATION ---
DATE OF SERVICE: 11/30/2017 Physician: Gisele Perea MD DATE OF ADMISSION: 11/30/2017 PRIMARY CARE PROVIDER: Jigna Pham MD ADMITTING PROVIDER: Gisele Perea MD CHIEF COMPLAINT: Altered mental status noted this morning when he had not even yet gotten out of bed. HISTORY OF PRESENT ILLNESS: This gentleman is an 87-year-old male that lives in his own home. He has a close friend of the family who lives in the property with him and is primary in-home support. His daughter lives in [place]. He is described as an elderly gentleman with gradually worsening long-term memory and definitely bad short-term memory. It has been getting subtly worse over the last 3 years, but he has still been independent enough to bathe himself, feed himself, and get dressed on his own. His friend and care provider does the rest. Cooks for him, drives him where needs to be, and his daughter takes care of the bills and she is his power of attorney at law. He walks with a walker and is usually oriented to place and person. On 11/20/2017, he presented to the emergency room with altered mental status that was suspicious for a possible TIA. At that point in time, he had an echo on 2017 that had ejection fraction of 30-35% with [id number] impaired global hypokinesis, grade 1 diastolic dysfunction, a right-sided heart that was basically normal. Left atrium was normal sized. Head and neck CT angiogram were also done in addition to the head CT. He had no aneurysms, [id number] intradural vertebral artery stenosis on the right, prominent cavernous and paraclinoid internal carotid atherosclerotic calcifications, but no acute hemorrhages. We did try to do an MRI of the head, but he was inadequately sedated and as such, could not complete it. He did have a mild elevation of cardiac enzymes to 0.18. He peaked at 0.2 and ended up down at 0.1. He has been back at home. His friend and maintenance shop technician states that he has been doing okay. No new antecedent changes. There is no fever, no chills. He has been getting a little bit weaker and losing his balance and he has fallen a couple of times. He has a tremendous clunk on his head, right in the middle of his forehead and one on the right occipital skull area. The bridge of his nose has black eschar on it. When his care provider went to go wake him up this morning, he was hard to arouse, and was noted to have left facial droop. So he was brought to the emergency room and evaluated by Dr. Taylor. He had a temperature 36.5 and a blood pressure of 137/87. He was oxygenating normally. He was found to be severely confused with slurred speech and dysarthria. His care provider and daughter at the bedside say this is completely new for him. Dr. Taylor found him to have a left facial droop, but no motor deficit on his left arm. CT of the head was negative. [place] coma scale 11. We are now placing him in observation for probable stroke. I have spoken to his daughter and their hope is that at least he can get rehabilitation to get some level of function back to allow him to go home. If not, she says that he never would want to live life this way. If he was ever to be disabled to the point that he needed complete care for his activities of daily living, he would want to be let go. As such, he is a DNR/DNI. His daughter confirms that. She said that one of his close friends is an attorney at law. He has also confirmed that to her over the phone. PAST MEDICAL HISTORY 1. Peripheral vascular disease and with leg claudication, resulting in leg bypass surgery. He has intermittent toe ulcers that are ischemic. 2. Microscopic hematuria. In 2013, he had a video cystoscopy which showed trilobar prostatic hyperplasia with moderate congestion of the mucosa. Bladder had severe trabeculations with numerous diverticula and innumerable stones. 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 He underwent transurethral resection of the bladder tumors. 3. History of lower extremity fractures with orthopedic procedures. 4. History of appendectomy. 5. History of cholecystectomy. 6. Type 2 diabetes mellitus, controlled, on long-term use of insulin with complications of chronic kidney disease. 7. Hypertension. ALLERGIES: NO KNOWN DRUG ALLERGIES. MEDICATIONS 1. Aspirin 81 mg a day. 2. Lantus 35 units in the evening, 3. NPH 25 units in the evening. 4. Lisinopril 2.5 mg daily. 5. Metformin 500 mg daily. 6. Metoprolol 25 mg p.o. b.i.d. SOCIAL HISTORY: He lives in [place], [place]. He is with his dying about 13 years ago. They have been for 52 years. 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 He was born in [place], but has lived in [place] [facility] for 44 years. He started smoking around age 18 or 19 and smoked 2 packs per day and stopped at the age of 41. He has no history of alcohol abuse, nor does he have any history of recreational substance abuse. He has lived on the same property on [facility] since "forever." Again, he has a friend and close family member who lives on the premises and is his care provider with his daughter living in [place]. CODE STATUS: DO NOT RESUSCITATE/DO NOT INTUBATE, per the daughter. FAMILY HISTORY: Mom of diabetes complications. Dad of old age. One sister of diabetes complications and his daughter is healthy. REVIEW OF SYSTEMS: His care provider and daughter provide the review of systems. They tend to disagree on the level of his cognitive deficit. His friend and care provider says it is not that bad, but his daughter is pretty firm and stating that it is. His long- term is "definitely deteriorating, and short-term has been declining in the last couple of years." With that has come gradual slight weight loss, but no fever or chills. ENT: Has problems with chewing, deafness. No loss of vision that they are aware of. PULMONARY: No chronic coughing, wheezing, shortness of breath. CARDIAC: Negative for chest pain, orthopnea, palpitations. GENITOURINARY: Occasional urinary incontinence, urgency, but no real change in that status. No increased urgency, frequency, or complaints of dysuria. JOINTS: No complaints of joint swelling, joint pain. Again in spite of the falls, he has not managed to hurt his joints just his skull. 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 Mechanical falls because of loss of balance x2 in the last 4 days. PHYSICAL EXAMINATION: VITAL SIGNS: On examination, temperature is 37, pulse is 90, blood pressure 148 /73, respirations 18, 94% on room air. GENERAL: He is lying in his bed, using his left hand to lift it and touch the side of his right skull saying "it hurts, it hurts, I have a headache." But when I bring his arm down and ask him about it, he does not respond and tell me he is in pain. Overall, general appearance is that of an elderly, cachectic male in mild distress from skull pain ENT: He has contusion on the mid forehead, contusion on the right side of the skull. Eschar on the bridge of his nose. His eyes tended to be rolled up and to the left, but when I have him speak to me, he does bring his eyes down and look at me when I am on the right side of the bed. Mouth is open, open mouth breathing with dry lips, dry oral mucosa. Unshaven. NECK: Supple. No carotid bruits. LUNGS: Clear to auscultation and percussion and he has coarse tubular breath sounds because of his open-mouth breathing. HEART: Regular rate and rhythm with a systolic ejection murmur. I do no really feel like his PMI is laterally displaced. He does not have a right ventricular lift. ABDOMEN: Abdominal musculature is firm. He is not overweight. Initially, I thought he was moaning because of palpation of his abdomen, but he has spontaneous moaning here and there. When I repeat his abdominal exam a few seconds later, there is no pain, no rebound, no guarding. Hyperactive bowel sounds. No organomegaly. He has bilateral harsh femoral bruits. EXTREMITIES: Showed legs to be rubrous from the knees on down. SKIN: Warm to touch. Wrinkle, shriveled skin over the ankles and tib-fib skin area. I do not feel pulses over the dorsalis pedis or posterior tibial area. The left great toe has a Band-Aid on it. He has a small black eschar on the 2nd left toe. The toes are small, shriveled, no signs of gangrene. Some onychomycosis. NEUROLOGIC: He prefers to use his left hand, but he will use his right hand at my request. Hand grasp strength is weak in both hands bilaterally and symmetrical. Slight facial droop on the left. Pupils are reactive. Again, prefers to have his eyes rotated to the left and up until I have him bring them down to look at me on the right. He does withdraw both feet to painful pressure. Light touch does not elicit any response. He does open his eyes to my voice and turn to look at me. LABORATORY DATA: Sodium 138, potassium 4.6, BUN 21, creatinine 1, random glucose 126, total bilirubin 1.6, ALT 54, AST 82, troponin is 0.1. White cell count 12.8, hemoglobin 15.3, hematocrit 46, platelet 148. He has moderate occult blood, ketones, 11-25 red cells, 0-3 white cells, moderate bacteria, no squamous cells. Negative lam ase. Culture will be done. Head CT shows no evidence of acute intracranial process. ASSESSMENT/PLAN 1. Cerebrovascular accident. Manifestation seems to be more with the slurred speech, left facial droop, and left extremity weakness. We will try and do an MRI with Ativan right before he goes. Daughter felt that he got Ativan last time, and by the time he got to the MRI scanner, the Ativan had worn off and he could not do it. He has already had a CT angiogram, already had an echocardiogram. Those will not be repeated. We will place the patient in observation for frequent neuro checks, to get the MRI. I have already contacted the social service to start placement for [facility] facility rehabilitation. He will be continued on aspirin a day and a statin a day. 2. Dementia, most likely vascular dementia by his history. This is a definite drop in his status. By description, this gentleman is ambulatory, able to feed himself, dress himself, and verbalize understanding and is oriented to place and person. Today, complete shift with garbled speech, left facial droop, and unable to even roll over in bed. 3. 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 On long-term insulin. With a creatinine of 1, he continues to be maintained with his metformin in the outpatient setting. In the inpatient setting, he will be maintained only on Lantus and short-acting insulin before meals based on a sliding scale, or a lower dose because of n.p.o. status based on a sliding scale. 4. Possible urinary tract infection, on UA. Start Levaquin IV since it is hard for him to do p.o. 5. DO NOT RESUSCITATE/DO NOT INTUBATE status. 6. Deep venous thrombosis prophylaxis will be compression hose and SCDs. 7. I am attesting that I anticipate less than a 96 hour admission and at 96 hours will evaluate for transfer and/or discharge. TD: 11/30/2017 16:52 YANNA
[2017-11-30] MEDS: METOPROLOL TARTRATE 25 MG TABLET PO SCH ×2 (16:16→21:32)
[2017-11-30] MEDS: ACETAMINOPHEN 1,000 MG/100 ML 100 ML IV SCH ×2 (16:38→21:37)
--- NOTE | 2017-11-30 17:28 | MRI Preliminary Report ---
Exam: MRI BRAIN W/O IMPRESSION: 1. Multiple foci of acute ischemic infarct in the right cerebral hemisphere in the MCA territory. Th ere are a few small scattered cortical lesions. The largest region of infarct is in the region of the right mariscal radiata. 2. No acute hemorrhage. 3. Multiple chronic ischemic infarcts as described above and below the tentorium. 4. Age-related changes including atrophy and extensive chronic microangiopathy of cerebral white thao er. [facility] SITE ID: [id number]
--- NOTE | 2017-11-30 17:42 | MRI Report ---
EXAM: MRI BRAIN WITHOUT CONTRAST EXAM DATE: 11/30/2017 04:35 PM. CLINICAL HISTORY: Left-sided weakness. Slurred speech. COMPARISON: No prior MRI. TECHNIQUE: Multiplanar, multisequence T1-weighted and fluid-sensitive MR sequences of the brain were performed. Sequences optimized for routine evaluation. Other: None. IV Contrast: None. FINDINGS: Brain Volume: Mild to moderate diffuse atrophy. Parenchyma/Dura: Multifocal right MCA territory restricted diffusion consistent with recent ischemic infarcts. There is a confluent region of right mariscal radiata diffusion abnormality measuring about 3 x 1.3 cm. Lateral to this, there are additional smaller scattered foci of lateral right frontal lobe diffusion hyperintensity also. No acute hemorrhage, mass effect or midline shift. Prominent chronic-appearing cerebral white matter disease likely from aging and chronic microangiopat hy. Multiple old ischemic infarcts involving the right occipital lobe and both cerebellar hemispheres. Ventricles/Cisterns: Mild to moderate ventriculomegaly, probably from atrophy. No abnormal extra-axia l fluid collection or hemorrhage. Sinuses: No acute appearing sinus disease. Bones: No focal pathologic appearing marrow signal changes. Other: The major arterial skull base flow voids are present. IMPRESSION: 1. Multiple foci of potentially acute ischemic infarct in the right cerebral hemisphere in the MCA te rritory. There are a few small scattered cortical lesions. The largest region of infarct is in the re gion of the right mariscal radiata. 2. No acute hemorrhage. 3. Multiple chronic ischemic infarcts as described above and below the tentorium. 4. Age-related changes including atrophy and extensive chronic microangiopathy of cerebral white thao er. Critical test result called by telephone to the ordering provider Dr. Regla Solitario at 5:25 PM Pedro KUMAR Referring Provider Line: [phone] SITE ID: [id number]
--- NOTE | 2017-11-30 18:57 | PROVIDER PROGRESS NOTE ---
Hospitalist Cross-cover Note - Cross-Cover Note Cross-Cover Note: 11/30/17 18:54 The MRI report came back. He has had multiple strokes on the right middle cerebral artery distribution. This is puzzling in that he has a negative echo from last week. He does not have A. fib. There is no atrial enlargement. So if he is having emboli, I cannot tell whether coming from any does not give a history of endocarditis. He also has a old strokes on the MRI. I have discussed this with the daughter. And I have asked her how she wishes me to proceed. The first option would be to go forward with trying to figure out where he is having a stroke from, and be aggressive about treating this with hope for rehab and some recovery. The second option would be to make him comfortable, make arrangements for hospice transition. She has been thinking about this all day long and would really like to just transition him to hospice. He would like to at home. He is always stated that. He never wanted to live if he was going to be this disabled. As such I will ask for hospice consult. Franck lara. She already has a hospital bed at home. Hospice will need to help her hire some in-home support services. I let her know that I am going off service and Dr. Mari martini will be coming on tomorrow.
[2017-11-30] MEDS: levoFLOXacin 500 MG/100 ML 500 MG/100 ML BAG IV SCH (19:21)
[2017-11-30] MEDS: ATORVASTATIN 40 MG TABLET PO SCH (21:32)
[2017-11-30] MEDS: DEXTROSE 5%-0.9% NACL 1,000 ML IV SCH (21:38)
[2017-12-01] MEDS: ACETAMINOPHEN 1,000 MG/100 ML 100 ML IV SCH ×4 (03:21→21:24)
[2017-12-01] MEDS: SODIUM CHLORIDE FLUSH 0.9% 10 ML SYRINGE IVP SCH ×3 (03:24→21:29)
[2017-12-01 05:27] LABS: BASOPHILS # (AUTO) 0.1 10^3/uL (0.0-0.1); BASOPHILS % (AUTO) 0.8 %; EOSINOPHILS # (AUTO) 0.1 10^3/uL (0.0-0.7); EOSINOPHILS % (AUTO) 0.7 %; HGB - HEMOGLOBIN 13.8 g/dL (14.0-18.0); LYMPHOCYTES # (AUTO) 1.2 10^3/uL (1.5-3.5); LYMPHOCYTES % (AUTO) 12.8 %; MEAN CORPUSCULAR HEMOGLOBIN 27.7 pg (27.0-31.0); MEAN CORPUSCULAR HGB CONC 32.2 g/dL (32.0-36.0); MEAN CORPUSCULAR VOLUME 86.2 fL (80.0-94.0); MEAN PLATELET VOLUME 9.9 fL (7.4-11.4); MONOCYTES % (AUTO) 10.8 %; NEUTROPHILS # (AUTO) 6.9 10^3/uL (1.5-6.6); NEUTROPHILS % (AUTO) 74.9 %; PLT - PLATELET COUNT 137 10^3/uL (130-450); RED CELL DISTRIBUTION WIDTH 15.4 % (12.0-15.0); WHITE BLOOD COUNT 9.2 x10^3/uL (4.8-10.8)
[2017-12-01 05:39] LABS: ALBUMIN 2.7 g/dL (3.2-5.5); BILIRUBIN,TOTAL 1.5 mg/dL (0.2-1.0); CALCIUM 8.1 mg/dL (8.5-10.3); CREATININE 1.3 mg/dL (0.6-1.2); TOTAL PROTEIN 5.5 g/dL (6.7-8.2)
[2017-12-01] MEDS: ASPIRIN 325 MG TABLET PO SCH (11:51)
[2017-12-01] MEDS: POLYETHYLENE GLYCOL 3350 17 GM PACKET PO SCH (11:52)
[2017-12-01] MEDS: METOPROLOL TARTRATE 25 MG TABLET PO SCH ×2 (11:52→22:35)
--- NOTE | 2017-12-01 14:22 | PROVIDER PROGRESS NOTE ---
Subjective - Prog Note Date Prog Note Date: 12/01/17 Prog Note Time: 14:21 - Subjective Subjective: The patient speaks but is unintelligible. He cannot make his specific wants or needs known at this time, but can say yes or no appropriately. He is not showing any signs of any pain or anxiety at this moment. Current Medications - Current Medications Current Medications: atorvastatin, D5 normal saline, Levaquin, Lorazepam, metoprolol, polyethylene glycol Objective - Vital Signs/Intake & Output Reviewed Vital Signs: Yes Vital Signs: Vital Signs x48h Temp Pulse Resp BP Pulse Ox 12/01/17 07:11 36.5 C 82 18 118/66 97 Intake & Output: Intake & Output 11/28/17 11/29/17 11/30/17 12/01/17 23:59 23:59 23:59 23:59 Intake Total 300 200 Output Total 300 Balance 300 -100 - Objective General Appearance: positive: No acute distress, Alert Eyes Bilateral: positive: Normal inspection, PERRL, EOMI, Conjunctivae nml ENT: positive: ENT inspection nml, Pharynx nml, No signs of dehydration, Dry mucous membranes, Other (Dysarthria noted, Patient has failed a swallow study) Neck: positive: Nml inspection, Thyroid nml, No JVD, Trachea midline, Thyromegaly Respiratory: positive: Chest non-tender, No respiratory distress, Breath sounds nml. negative: Wheezes, Rales, Rhonchi Cardiovascular: positive: Regular rate & rhythm, No murmur, No gallop Abdomen: positive: Non-tender, No organomegaly, Nml bowel sounds, No distention Back: positive: Nml inspection. negative: CVA tenderness (R), CVA tenderness (L ) Skin: positive: Color nml, No rash, Warm, Dry. negative: Cyanosis Extremities: positive: Non-tender, No pedal edema. negative: Joint swelling Neurologic/Psychiatric: positive: Weakness, Facial droop, Slurred/abnml speech - Lab Results Fish Bones: 12/01/17 05:19 12/01/17 05:19 Other Labs: Lab Results x24hrs 12/01/17 12/01/17 Range/Units 05:19 05:19 WBC 9.2 (4.8-10.8) x10^3/uL RBC 5.00 (4.70-6.10) 10^6/uL Hgb 13.8 L (14.0-18.0) g/dL Hct 43.0 (42.0-52.0) % MCV 86.2 (80.0-94.0) fL MCH 27.7 (27.0-31.0) pg MCHC 32.2 (32.0-36.0) g/dL RDW 15.4 H (12.0-15.0) % Plt Count 137 (130-450) 10^3/uL MPV 9.9 (7.4-11.4) fL Neut # 6.9 H (1.5-6.6) 10^3/uL Lymph # 1.2 L (1.5-3.5) 10^3/uL Oliver # 1.0 (0.0-1.0) 10^3/uL Eos # 0.1 (0.0-0.7) 10^3/uL Baso # 0.1 (0.0-0.1) 10^3/uL Absolute Nucleated RBC 0.00 x10^3/uL Nucleated RBC % 0.1 /100WBC Sodium 138 (135-145) mmol/L Potassium 3.9 (3.5-5.0) mmol/L Chloride 108 (101-111) mmol/L Carbon Dioxide 20 L (21-32) mmol/L Anion Gap 10.0 (6-13) BUN 24 H (6-20) mg/dL Creatinine 1.3 H (0.6-1.2) mg/dL Estimated GFR (MDRD) 52 L (>89) Glucose 163 H (70-100) mg/dL Calcium 8.1 L (8.5-10.3) mg/dL Total Bilirubin 1.5 H (0.2-1.0) mg/dL AST 58 H (10-42) IU/L ALT 30 (10-60) IU/L Alkaline Phosphatase 71 (42-121) IU/L Total Protein 5.5 L (6.7-8.2) g/dL Albumin 2.7 L (3.2-5.5) g/dL Globulin 2.8 (2.1-4.2) g/dL Albumin/Globulin Ratio 1.0 (1.0-2.2) - Diagnostic Imaging Diagnostic Imaging Results: positive: Final report reviewed Diagnostic Imaging Comments: EXAM: MRI BRAIN WITHOUT CONTRAST EXAM DATE: 11/30/2017 04:35 PM. CLINICAL HISTORY: Left-sided weakness. Slurred speech. COMPARISON: No prior MRI. TECHNIQUE: Multiplanar, multisequence T1-weighted and fluid-sensitive MR sequences of the brain were performed. Sequences optimized for routine evaluation. Other: None. IV Contrast: None. FINDINGS: Brain Volume: Mild to moderate diffuse atrophy. Parenchyma/Dura: Multifocal right MCA territory restricted diffusion consistent with recent ischemic infarcts. There is a confluent region of right mariscal radiata diffusion abnormality measuring about 3 x 1.3 cm. Lateral to this, there are additional smaller scattered foci of lateral right frontal lobe diffusion hyperintensity also. No acute hemorrhage, mass effect or midline shift. Prominent chronic-appearing cerebral white matter disease likely from aging and chronic microangiopathy. Multiple old ischemic infarcts involving the right occipital lobe and both cerebellar hemispheres. Ventricles/Cisterns: Mild to moderate ventriculomegaly, probably from atrophy. No abnormal extra- axial fluid collection or hemorrhage. Sinuses: No acute appearing sinus disease. Bones: No focal pathologic appearing marrow signal changes. Other: The major arterial skull base flow voids are present. IMPRESSION: 1. Multiple foci of potentially acute ischemic infarct in the right cerebral hemisphere in the MCA territory. There are a few small scattered cortical lesions. The largest region of infarct is in the region of the right mariscal radiata. 2. No acute hemorrhage. 3. Multiple chronic ischemic infarcts as described above and below the tentorium. 4. Age-related changes including atrophy and extensive chronic microangiopathy of cerebral white matter. EXAM: CHEST RADIOGRAPHY EXAM DATE: 11/30/2017 09:42 AM. CLINICAL HISTORY: Ams. COMPARISON: Frontal chest: 11/20/2017. TECHNIQUE: 1 view. FINDINGS: Lungs/Pleura: No focal opacities evident. No pleural effusion. No pneumothorax. Mediastinum: Stable mild cardiomegaly. IMPRESSION: No evidence of acute thoracic process EXAM: CT HEAD EXAM DATE: 11/30/2017 09:36 AM. CLINICAL HISTORY: Fall HI AMS L weakness. COMPARISON: None. TECHNIQUE: Multiaxial CT images were obtained from the foramen magnum to the vertex. Reformats: Coronal. IV contrast: None. In accordance with CT protocol optimization, one or more of the following dose reduction techniques were utilized for this exam: automated exposure control, adjustment of mA and/or KV based on patient size, or use of iterative reconstructive technique. FINDINGS: Parenchyma: No intraparenchymal hemorrhage. No evidence of mass, midline shift, or CT findings of acute infarction. Manzo-white differentiation is distinct. There are periventricular and deep white matter low attenuating foci, consistent with chronic microvascular angiopathic changes. Small foci of right occipital and left cerebellar encephalomalacia are stable findings. Extraaxial Spaces: Normal for age. No subdural or epidural collections identified. Ventricles: Normal in size and position. Sinuses and Orbits: Imaged paranasal sinuses, orbits, and mastoids show no significant abnormality apart from postsurgical changes of the orbits. Bones: No evidence of fracture or calvarial defect. IMPRESSION: No evidence of acute intracranial process EXAM: CT CERVICAL SPINE WITHOUT CONTRAST DATE: 11/30/2017 09:36 AM. HISTORY: Fall HI AMS. COMPARISONS: Neck CT 11/20/2017. TECHNIQUE: Thin-section axial images were acquired of the cervical spine without contrast. Post- processing: Coronal and sagittal reformats. Other: None. In accordance with CT protocol optimization, one or more of the following dose reduction techniques were utilized for this exam: automated exposure control, adjustment of mA and/or KV based on patient size, or use of iterative reconstructive technique. FINDINGS: Alignment: No scoliosis or spondylolisthesis. Bones: No fracture or bone lesion. Interspace Levels/Facets: C1-C2: Osteophytes cause moderate to severe narrowing of the left bony neural foramen. C2-C3: Unremarkable. C3-C4: There is moderate disk space narrowing. Osteophytes narrow the bony neural foramina, mild on the right and moderate on the left. C4-C5: Osteophytes cause moderate narrowing of the bony neural foramina. C5-C6: There is severe disk space narrowing. Osteophytes cause mild narrowing of the bony neural foramina. C6-C7: There is severe disk space narrowing. C7-T1: There is moderate disk space narrowing. Osteophytes cause narrowing of the bony neural foramina, moderate to severe on the right and mild to moderate on the left. Musculature: Normal. No fatty atrophy. Other: The paravertebral and prevertebral soft tissues are unremarkable. The lung apices are clear. There is a nodular right thyroid. IMPRESSION: Moderate to severe cervical spondylosis. No evidence of acute fracture. Assessment/Plan - Problem List (1) Cerebrovascular accident (CVA) Impression: The patient has had the CVA as noted; in speaking with the patient's daughter at length she is adamant that her father would not want to prolong his life in this situation and is requesting hospice services. Hospice has been consulted. 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 Will monitor. Qualifiers: Urinary tract infection type: acute cystitis Hematuria presence: without hematuria Qualified Code(s): N30.00 - Acute cystitis without hematuria
[2017-12-01] MEDS: levoFLOXacin 500 MG/100 ML 500 MG/100 ML BAG IV SCH (18:49)
[2017-12-01] MEDS: ATORVASTATIN 40 MG TABLET PO SCH (22:45)
[2017-12-02] MEDS: ACETAMINOPHEN 1,000 MG/100 ML 100 ML IV SCH ×4 (02:54→21:23)
[2017-12-02] MEDS: DEXTROSE 5%-0.9% NACL 1,000 ML IV SCH (04:48)
[2017-12-02] MEDS: SODIUM CHLORIDE FLUSH 0.9% 10 ML SYRINGE IVP SCH ×3 (05:18→21:28)
[2017-12-02] MEDS: ASPIRIN 325 MG TABLET PO SCH (08:00)
[2017-12-02] MEDS: POLYETHYLENE GLYCOL 3350 17 GM PACKET PO SCH ×2 (08:00→08:05)
[2017-12-02] MEDS: METOPROLOL TARTRATE 25 MG TABLET PO SCH ×2 (08:00→21:24)
--- NOTE | 2017-12-02 16:38 | PROVIDER PROGRESS NOTE ---
Subjective - Prog Note Date Prog Note Date: 12/02/17 Prog Note Time: 16:36 - Subjective Pt reports feeling: Improved Subjective: The patient is comfortable and does not show any signs of any pain and denies it by shaking his head.He has been sleeping most of the day and is only awake for brief periods of time. Current Medications - Current Medications Current Medications: Tylenol, aspirin, D5 one half normal saline, Levaquin, Lipitor, Ativan, Lopressor, MiraLAX Objective - Vital Signs/Intake & Output Reviewed Vital Signs: Yes Vital Signs: Vital Signs x48h Temp Pulse Resp BP Pulse Ox 12/02/17 15:57 36.3 C L 70 18 120/58 L 97 Intake & Output: Intake & Output 11/29/17 11/30/17 12/01/17 12/02/17 23:59 23:59 23:59 23:59 Intake Total 200 1371.5 Output Total 175 375 Balance 25 996.5 - Objective General Appearance: positive: No acute distress, Lethargic Eyes Bilateral: positive: Normal inspection, PERRL, EOMI ENT: positive: ENT inspection nml, Pharynx nml, No signs of dehydration Neck: positive: Nml inspection, Thyroid nml, No JVD, Trachea midline. negative : Thyromegaly Respiratory: positive: Chest non-tender, No respiratory distress, Breath sounds nml. negative: Wheezes, Rales, Rhonchi Cardiovascular: positive: Regular rate & rhythm, No murmur, No gallop. negative : Extrasystoles, Tachycardia Abdomen: positive: Non-tender, No organomegaly, Nml bowel sounds, No distention. negative: Guarding, Rebound, Hepatomegaly, Splenomegaly Back: positive: Nml inspection. negative: CVA tenderness (R), CVA tenderness (L ) Skin: positive: Color nml, No rash, Warm, Dry. negative: Cyanosis Extremities: positive: Non-tender, Full ROM, Nml appearance Neurologic/Psychiatric: positive: Oriented x3, CN's nml (2-12), Motor nml, Sensation nml, Mood/affect nml - Lab Results Fish Bones: 12/01/17 05:19 12/01/17 05:19 Assessment/Plan - Problem List (1) Cerebrovascular accident (CVA) Impression: The patient remains comfortable and is not had any new problems. The current plan is for him to be discharged tomorrow home with his family for end-of-life care.He has been accepted by hospice. 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 Qualifiers: Urinary tract infection type: acute cystitis Hematuria presence: without hematuria Qualified Code(s): N30.00 - Acute cystitis without hematuria
[2017-12-02] MEDS: levoFLOXacin 500 MG/100 ML 500 MG/100 ML BAG IV SCH (18:55)
[2017-12-02] MEDS: ATORVASTATIN 40 MG TABLET PO SCH (21:24)
[2017-12-03] MEDS: ACETAMINOPHEN 1,000 MG/100 ML 100 ML IV SCH ×2 (03:25→08:07)
[2017-12-03] MEDS: SODIUM CHLORIDE FLUSH 0.9% 10 ML SYRINGE IVP SCH (06:08)
[2017-12-03 06:10] LABS: CALCIUM 8.1 mg/dL (8.5-10.3); CREATININE 1.3 mg/dL (0.6-1.2)
[2017-12-03] MEDS: POLYETHYLENE GLYCOL 3350 17 GM PACKET PO SCH (08:00)
[2017-12-03] MEDS: METOPROLOL TARTRATE 25 MG TABLET PO SCH (08:12)
[2017-12-03] MEDS: ASPIRIN 325 MG TABLET PO SCH (08:12)
--- NOTE | 2017-12-03 10:48 | Discharge Plan ---
Discharge Plan Disposition: 01 Home, Self Care Condition: Fair Diet: Regular Activity Restrictions: Activity as Tolerated Shower Restrictions: No Driving Restrictions: No Assistance Devices: Wheelchair Weight Bearing: Partial Weight No Smoking: If you smoke, Please STOP! Call for help. Follow-up with: Daniel Hawthorne MD [Primary Care Provider] -
[2017-12-03 12:03] VITALS: BP 114/65
--- NOTE | 2017-12-04 17:27 | DISCHARGE SUMMARY ---
Discharge Summary Admit Date: 11/30/17 Discharge Date: 12/03/17 Discharging Provider: Sierra Joe DO Primary Care Provider: Felipe Hawthorne MD Code Status: Attempt Resuscitation Condition at Discharge: Fair Discharge Disposition: Home, Self Care - DIAGNOSES Admission Diagnoses: 1) CVA 2 Dementia 3) Type 2 DM Discharge Diagnoses with Status of Each Condition: 1) CVA- The patient has had multiple embolic strokes to the right side of his brain. He has had a significant decline in his family is adamant that he would not want to prolong his life at this time. We obtained a hospice consult and the patient is going home on hospice services for end-of-life care. 2 Dementia- stable 3) Type 2 DM- stable - HPI History of Present Illness: Mr. Twan Mcneal is an 87-year-old male who lives in his own home. He has a close friend of the family who lives on the property with him and is his primary in-home caregiver. He has been having worsening long-term memory and short-term memory as well. He has been able to perform his ADLs with exception of cooking or driving in the patient's daughter pays his bills. He had an episode of altered mental status on November 20, 2017 which was suspicious for a TIA and was evaluated in the [facility] emergency department. The head and neck CT angiograms and CT were done and failed to show any significant acute processes however when he came back to the emergency room on November 30 he was found to have suffered multiple right-sided embolic strokes. - HOSPITAL COURSE Hospital Course: The patient was admitted to medical surgical bed and stabilized. Will became apparent that the patient is suffered significant deficits and that he had had multiple embolic strokes the patient's daughter, his healthcare surrogate, decided that he would not want to prolong his life at this time in this manner, and requested a hospice consultation. The patient was discharged home 3 days later with home hospice services in place for end-of-life care. The patient's swelling abilities are significantly impaired and if he does eat he will likely aspirate; if he does not eat he will of course waste away.He is therefore most appropriate for hospice services at this time. - ALLERGIES Allergies/Adverse Reactions: Allergies Allergy/AdvReac Type Severity Reaction Status Date / Time No Known Drug Allergies Allergy Verified 11/30/17 09:05 - MEDICATIONS Home Medications: Ambulatory Orders Medication Instructions Recorded Confirmed Insulin NPH Hum/Reg Insulin Hm 25 unit SUBQ 0730 05/26/14 11/30/17 [Novolin 70-30 100 Unit/ml Vial] metFORMIN [Glucophage] 500 mg PO BIDWM 03/04/16 11/30/17 Insulin NPH Hum/Reg Insulin Hm 24 units SUBQ 1630 11/20/17 11/30/17 [Humulin 70-30 Vial] Aspirin [Aspirin EC] 81 mg PO DAILY #30 tablet. 11/22/17 11/30/17 Insulin Glargine [Lantus Solostar] 35 unit SQ QPM #5 pen 11/22/17 11/30/17 Lisinopril 2.5 mg PO DAILY #30 tablet 11/22/17 11/30/17 Metoprolol Tartrate 25 mg PO BID #60 tablet 11/22/17 11/30/17 - PHYSICAL EXAM AT DISCHARGE General Appearance: positive: No acute distress, Alert Eyes Bilateral: positive: Normal inspection, PERRL, EOMI, No lid inflammation, Conjunctivae nml ENT: positive: ENT inspection nml, Pharynx nml, No signs of dehydration Neck: positive: Nml inspection, Thyroid nml, No JVD, Trachea midline Respiratory: positive: Chest non-tender, No respiratory distress, Breath sounds nml Cardiovascular: positive: Regular rate & rhythm, No murmur, No gallop Peripheral Pulses: positive: 1+ Abdomen: positive: Non-tender, No organomegaly, Nml bowel sounds, No distention Back: positive: Nml inspection. negative: CVA tenderness (R), CVA tenderness (L ) Skin: positive: Color nml, No rash, Warm, Dry Extremities: positive: Non-tender, Full ROM, Nml appearance Neurologic/Psychiatric: positive: Disoriented to place, Disoriented to time, Weakness, Slurred/abnml speech - LABS Result Diagrams: 12/01/17 05:19 12/03/17 05:50 - FOLLOW UP Follow Up: The patient will be seen and followed by home hospice - TIME SPENT Time Spent in Discharge (Minutes): 30
== END 2017-12-03 12:00 | disposition home or self-care (01) | DRG 65 ==
LOC: EDUNIT# → ED 08:59 → OBS 11:19 → OBSVTOIN 12-01 20:04 → MS2 12-01 20:56
PROVIDERS: ADMIT Specialist; ATTEND Hospitalist
DX: I63.411 Cerebral infarction due to embolism of right middle cerebral artery (principal); G81.94 Hemiplegia, unspecified affecting left nondominant side; R47.81 Slurred speech; R47.1 Dysarthria and anarthria; R29.810 Facial weakness; R40.2422 Glasgow coma scale score 9-12, at arrival to emergency department; S00.83XA Contusion of other part of head, initial encounter; S00.03XA Contusion of scalp, initial encounter; W06.XXXA Fall from bed, initial encounter; Y92.003 Bedroom of unspecified non-institutional (private) residence as the place of occurrence of the external cause; N30.00 Acute cystitis without hematuria; I10 Essential (primary) hypertension; E11.22 Type 2 diabetes mellitus with diabetic chronic kidney disease; N18.9 Chronic kidney disease, unspecified; E11.51 Type 2 diabetes mellitus with diabetic peripheral angiopathy without gangrene; E11.42 Type 2 diabetes mellitus with diabetic polyneuropathy; M47.9 Spondylosis, unspecified; Z85.51 Personal history of malignant neoplasm of bladder; Z91.81 History of falling; F03.90 Unspecified dementia, unspecified severity, without behavioral disturbance, psychotic disturbance, mood disturbance, and anxiety; E11.9 Type 2 diabetes mellitus without complications; Z66 Do not resuscitate; Z90.49 Acquired absence of other specified parts of digestive tract; Z87.891 Personal history of nicotine dependence; Z79.4 Long term (current) use of insulin; Z79.82 Long term (current) use of aspirin
CPT/HCPCS: 36415; 51701; 70450; 70551; 71045; 72125; 80048; 80053; 81001; 81003; 83690; 84484; 85025; 87086; 93005; 96365; 96366; 96367; 96375; 96376; 99285

== ENCOUNTER 2017-12-03 12:09 | Outpatient (CLI) | payer MEDICARE, OTHER | END 2017-12-03 12:10 | disposition home or self-care (01) | LOC: EMS 12:09 | PROVIDERS: ATTEND Surgery | DX: I63.9 Cerebral infarction, unspecified (principal); Z74.01 Bed confinement status | CPT/HCPCS: A0425; A0428 ==